=== PATIENT | male | born 1980 | race Caucasian/White ===

== ENCOUNTER 2016-07-30 17:18 | Emergency (ER) | payer OTHER ==
[~2016-07-30] VITALS: Ht 175.3 cm; Wt 83.9 kg
[~2016-07-30 17:18] MED LIST: AMOX875T2 PO; AUGM875T27 PO; BUPRENORPHINE SL; BUSP1TAB PO; CLON0.5T PO; NALOXONE SL; NO MEDS; PAXI10TA2 PO; SUBO4MIS SL; SUBO8MIS SL; TYLE325C PO; XANA0.5T PO; XANA1TAB2 PO
[2016-07-30] MEDS: NS 1,000 ML IV SCH ×2 (17:42→20:14)
--- NOTE | 2016-07-30 18:21 | REP ---
CT Head without contrast HISTORY: Altered mental status COMPARISON: 01/30/2012 There is no intraparenchymal hemorrhage, acute infarct, mass or midline shift. The ventricular system is normal in appearance. There is no extra cerebral collection. There is no fracture. The visualized sinuses are clear. IMPRESSION: There is no intracranial lesion. Signed by Praneeth Chandra MD 07/30/2016 06:12 P
[2016-07-30] MEDS ORDERED: GABA800T PO (18:22)
[2016-07-30 18:35] LABS: BASO % 0.4 % (0.0-1.0); EOS % 0.5 % (0.0-3.0); LARGE UNSTAINED CELL # 0.1 K/mm3 (0.0-0.4); LARGE UNSTAINED CELL % 1.1 % (0.0-4.0); LYMPH # 1.6 K/mm3 (1.5-4.5); LYMPH % 15.3 % (24.0-44.0); MEAN CORPUSCULAR HEMOGLOBIN 29.5 pg (27.0-33.0); MEAN CORPUSCULAR HGB CONC 33.5 g/dl (32.0-36.5); MEAN CORPUSCULAR VOLUME 88.1 fl (80.0-96.0); MONO # 0.5 K/mm3 (0.0-0.8); MONO % 4.9 % (0.0-5.0); NEUTROPHILS # 7.8 K/mm3 (1.8-7.7); NEUTROPHILS % 77.8 % (36.0-66.0); PLATELET COUNT, AUTOMATED 225 k/mm3 (150-450); RED CELL DISTRIBUTION WIDTH 13.1 % (11.5-14.5); WHITE BLOOD COUNT 10.1 K/mm3 (4.0-10.0)
[2016-07-30 18:39] LABS: ALBUMIN 3.9 GM/DL (3.2-5.2); ALBUMIN/GLOBULIN RATIO 1.15 (1.00-1.93); ALKALINE PHOSPHATASE 73 U/L (45-117); ALT/SGPT 123 U/L (12-78); ANION GAP 5 MEQ/L (8-16); AST/SGOT 55 U/L (15-37); BILIRUBIN,DIRECT < 0.1 MG/DL (0.0-0.2); BILIRUBIN,TOTAL 0.3 MG/DL (0.2-1.0); BLOOD UREA NITROGEN 8 MG/DL (7-18); CALCIUM LEVEL 8.5 MG/DL (8.5-10.1); CARBON DIOXIDE LEVEL 28 MEQ/L (21-32); CHLORIDE LEVEL 104 MEQ/L (98-107); CREATININE FOR GFR 0.93 MG/DL (0.70-1.30); GLOMERULAR FILTRATION RATE > 60.0 (>60); GLUCOSE, FASTING 91 MG/DL (70-105); POTASSIUM SERUM 4.1 MEQ/L (3.5-5.1); SODIUM LEVEL 137 MEQ/L (136-145); TOTAL PROTEIN 7.3 GM/DL (6.4-8.2)
[2016-07-30] MEDS ORDERED: [UNRECOGNIZED DRUG - OTHER] (18:41)
[2016-07-30 19:52] LABS: METHADONE URINE NEGATIVE (NEGATIVE)
[2016-07-30] MEDS ORDERED: carBAMazepine XR 200 MG TAB PO ONE (20:00)
[2016-07-30] MEDS ORDERED: CLON0.5T PO (20:06)
[2016-07-30] MEDS ORDERED: CARB20TAXR PO (20:06)
[2016-07-30] MEDS ORDERED: clonazePAM 1 MG TAB PO ONE (20:15)
[2016-07-30] MEDS ORDERED: clonazePAM 0.5 MG TAB PO ONE (20:15)
[2016-07-30 20:20] VITALS: BP 121/65
--- NOTE | 2016-07-31 18:27 | ECGEPIP ---
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
== END 2016-07-30 20:34 | disposition home or self-care (01) ==
LOC: EDBD 17:18 → M ED 18:20
DX: G40.909 Epilepsy, unspecified, not intractable, without status epilepticus (principal); F13.230 Sedative, hypnotic or anxiolytic dependence with withdrawal, uncomplicated; F17.200 Nicotine dependence, unspecified, uncomplicated

== ENCOUNTER 2016-08-05 10:03 | Inpatient (IN) | payer OTHER ==
[~2016-08-05] VITALS: Ht 172.7 cm; Wt 88.8 kg
[~2016-08-05 10:03] MED LIST changes: +CARB20TAXR PO; +GABA800T PO; +[UNRECOGNIZED DRUG - OTHER]
[2016-08-05] MEDS ORDERED: NS 500 ML IV ONE ×2 (10:30→18:15)
[2016-08-05 10:51] LABS: BASO % 0.4 % (0.0-1.0); EOS # 0.1 K/mm3 (0.0-0.50); LARGE UNSTAINED CELL # 0.1 K/mm3 (0.0-0.4); LARGE UNSTAINED CELL % 1.9 % (0.0-4.0); LYMPH # 2.5 K/mm3 (1.5-4.5); LYMPH % 40.9 % (24.0-44.0); MEAN CORPUSCULAR HEMOGLOBIN 29.7 pg (27.0-33.0); MEAN CORPUSCULAR HGB CONC 33.2 g/dl (32.0-36.5); MEAN CORPUSCULAR VOLUME 89.4 fl (80.0-96.0); MONO # 0.3 K/mm3 (0.0-0.8); MONO % 5.7 % (0.0-5.0); NEUTROPHILS # 2.8 K/mm3 (1.8-7.7); NEUTROPHILS % 49.2 % (36.0-66.0); PLATELET COUNT, AUTOMATED 219 k/mm3 (150-450); RED CELL DISTRIBUTION WIDTH 13.3 % (11.5-14.5); WHITE BLOOD COUNT 5.8 K/mm3 (4.0-10.0)
[2016-08-05 11:11] LABS: ALBUMIN 3.3 GM/DL (3.2-5.2); ALBUMIN/GLOBULIN RATIO 1.06 (1.00-1.93); ALKALINE PHOSPHATASE 83 U/L (45-117); ALT/SGPT 89 U/L (12-78); ANION GAP 7 MEQ/L (8-16); AST/SGOT 56 U/L (15-37); BILIRUBIN,DIRECT < 0.1 MG/DL (0.0-0.2); BILIRUBIN,TOTAL 0.2 MG/DL (0.2-1.0); BLOOD UREA NITROGEN 16 MG/DL (7-18); CALCIUM LEVEL 8.4 MG/DL (8.5-10.1); CARBON DIOXIDE LEVEL 28 MEQ/L (21-32); CHLORIDE LEVEL 108 MEQ/L (98-107); CREATININE FOR GFR 0.85 MG/DL (0.70-1.30); GLOMERULAR FILTRATION RATE > 60.0 (>60); GLUCOSE, FASTING 96 MG/DL (70-105); POTASSIUM SERUM 4.6 MEQ/L (3.5-5.1); SODIUM LEVEL 143 MEQ/L (136-145); TOTAL PROTEIN 6.4 GM/DL (6.4-8.2)
--- NOTE | 2016-08-05 11:17 | REP ---
Portable chest, single AP view, patient sitting: Comparison is 03/15/2015. The lung hickey are clear. The cardiac size is normal. The junie, mediastinum, and bony thorax are unremarkable. Impression: Negative portable chest. Signed by Dejon Alvarado MD 08/05/2016 11:09 A
[2016-08-05] MEDS ORDERED: carBAMazepine XR 200 MG TAB PO ONE (12:15)
--- NOTE | 2016-08-05 12:38 | REP ---
CT of the brain without IV contrast: Comparisons are 07/30/2016, and 01/30/2012. There is no hemorrhage, mass effect or midline shift. However, there is subtle decreased attenuation in the left temporal parietal zone without mass effect or shift. This is of uncertain significance. Subtle ischemic infarct is at least one diagnostic consideration. I would recommend MRI for confirmation. Ventricles are normal size and unchanged. The cortical stripe is otherwise unremarkable. Impression: Subtle zone of decreased attenuation in the left temporal parietal zone of uncertain significance, possibly a developing ischemic infarct. Recommend MRI for confirmation. Signed by Dejon Alvarado MD 08/05/2016 12:29 P
[2016-08-05] MEDS ORDERED: ONDANSETRON 4MG/2ML VIAL (J2405) As Ordered ONE (13:12)
[2016-08-05] MEDS ORDERED: ONDANSETRON 4MG/2ML VIAL (J2405) IV ONE (13:15)
[2016-08-05] MEDS ORDERED: LORazepam 2 MG/ML VIAL (J2060) IV STA (13:40)
[2016-08-05 13:50] LABS: INR 0.92
[2016-08-05] MEDS ORDERED: BUPR8SUB SL ×2 (13:57→15:46)
[2016-08-05] MEDS ORDERED: NS 1,000 ML IV ONE (14:15)
[2016-08-05 14:43] LABS: ANION GAP 5 MEQ/L (8-16); BLOOD UREA NITROGEN 14 MG/DL (7-18); CALCIUM LEVEL 8.6 MG/DL (8.5-10.1); CARBON DIOXIDE LEVEL 28 MEQ/L (21-32); CHLORIDE LEVEL 108 MEQ/L (98-107); GLOMERULAR FILTRATION RATE > 60.0 (>60); GLUCOSE, FASTING 83 MG/DL (70-105); POTASSIUM SERUM 4.3 MEQ/L (3.5-5.1); SODIUM LEVEL 141 MEQ/L (136-145)
[2016-08-05] MEDS ORDERED: NICO2GUM34 PO (15:46)
[2016-08-05] MEDS ORDERED: CLON0.5T PO (15:46)
[2016-08-05] MEDS ORDERED: CITA20TA4 PO (15:46)
[2016-08-05] MEDS ORDERED: CARB20TAXR PO (15:46)
[2016-08-05] MEDS ORDERED: HYDR50CA2 PO (15:46)
[2016-08-05] MEDS ORDERED: NICO21DI5 TD (15:46)
--- NOTE | 2016-08-05 15:52 | REP ---
MR angiography the brain without contrast: History: Abnormal CT. Recent seizure activity. Technique: 3-D bilp-wi-kykwit MR angiography of the brain is acquired in the usual fashion and maximal intensity projection images were generated in rotational format about the vertical and horizontal axes. In addition, source axial T1-weighted images are viewed in cine mode. MR angiographic findings: The distal left vertebral artery is patent . The right vertebral artery distally is not seen. It may be caudal to the field of view. Basilar artery is a little tortuous but widely patent. The posterior cerebral and superior cerebellar vessels are normal and symmetric. The distal internal carotid arteries are unremarkable. Anterior and middle cerebral arteries appear intact. There is no visible mullins aneurysm or arteriovenous malformation. Impression: Unremarkable MR angiography the brain. Signed by Edgar Yuan MD 08/05/2016 03:43 P
[2016-08-05] MEDS ORDERED: GABAPENTIN 400 MG CAP PO SCH (16:00)
[2016-08-05] MEDS ORDERED: ACETAMINOPHEN TAB 650MG DOSE (2X325MG) PO PRN (16:15)
--- NOTE | 2016-08-05 16:29 | REP ---
MRI study of the brain without contrast: History: Follow up abnormal CT study. Recent seizure activity. Technique: Axial and sagittal imaging planes are utilized for T1 and T2-weighted scans. Sequences include spin-echo, fast spin echo, FLAIR, and diffusion weighted sequences. MRI findings: No bony calvarial lesion is seen. There is mucosal thickening in the left side of the sphenoid sinus. No other MR evidence of significant paranasal sinus disease is seen. No intraorbital abnormality is appreciated. Craniocervical junction and upper cervical cord are normal in appearance. Diffusion weighted scans show no evidence to suggest acute ischemia. Coronal T2 FLAIR images show normal temporal lobes and hippocampal structures. There is no evidence of intracranial hemorrhage. No infarct, mass, extra-axial fluid collection or midline shift is seen. Impression: No acute intracranial lesion. Mucosal thickening in the left side of the sphenoid sinus. Otherwise normal. Signed by Edgar Yuan MD 08/05/2016 04:48 P
--- NOTE | 2016-08-05 16:47 | ECGEPIP ---
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
[2016-08-05 17:29] LABS: METHADONE URINE NEGATIVE (NEGATIVE)
[2016-08-05 17:30] VITALS: BP 95/64
--- NOTE | 2016-08-05 17:43 | REP ---
Bilateral carotid artery duplex ultrasound: Peak flow velocity analysis: RIGHT LEFT ICA. Peak flow velocity cm/sec 58 62 ICA Diastolic flow velocity cm/sec 29 28 ICA/CCA Ratio 0.64 0.76 There is no identifiable atheromatous plaque. Peak flow velocities are normal. Normal bilateral carotid duplex ultrasound. There is no stenosis on the right on the left. There is antegrade flow in the vertebral arteries bilaterally Signed by Dejon Alvarado MD 08/05/2016 05:34 P
[2016-08-05] MEDS ORDERED: BUPRENORPHINE/NALOXONE 8-2MG SUBLINGUAL TABLET(SUBOXONE) SL ONE (18:00)
[2016-08-05] MEDS: NS 1,000 ML IV SCH (19:31)
[2016-08-05 19:37] VITALS: BP 93/62
[2016-08-05] MEDS ORDERED: NICOTINE POLACRILEX 2 MG GUM PO PRN (19:45)
--- NOTE | 2016-08-05 20:29 | HPEPDOC ---
General Date of Admission Aug 05, 2016 at 15:11 Other Providers PCP: Tera Muñiz MD. Ayanna Magness in [place], [place] Chief Complaint The patient is a 36-year-old male admitted with a reason for visit of Seizure. Source: Patient History of Present Illness Mr. Nichole is here today because he once again had what appears to be sudden episode of loss of consciousness. He states that this occurred at approximately 8-9 AM this morning, he was having his mother's house, alone, he was going from the kitchen and living room when his vision became fussy, and he felt a warm sensation all over his body, and he felt a sensation that he needed a PE, and then suddenly "lights out" and he fell to the ground. This was unwitnessed. He did not have sufficient warning time even to sit down. He states that when he woke up he had drool all over his face, and his mind was foggy for approximately 20 minutes. He did not lose bowel or bladder control. He called the hospital and asked him what to do, they instructed him to come into the emergency department immediately. Then he called a friend who came over, assisted him to the car, he states that he had but one arm around his shoulder, but he was able to walk to the car. And then he was transported to the ED by his friend. He states that he had a similar episode in [facility] approximately 6 days ago for which she came into the emergency department. A seizure was suspected at that time, and he was given a prescription of 9 pills of Klonopin. His story regarding his use of medication is inconsistent. He states that he was given 9 days worth of clonazepam, which she was taking 1 pill 3 times a day , every day, including yesterday. When it was pointed out that he was not prescribed sufficient pills for this, he then stated that he was taking his pills only once a day, but yesterday he only had 1 pill left, therefore he broke it in half, and he still has half a pill left at home. This number does not correlate to his prescribed amount either. In addition to this he states that he takes Subutex 3 pills once a day every day, and he has never missed a dose, his last dose was yesterday, but he did not take his morning dose this morning because of his seizure/syncopal episode, therefore he feels as though he is starting to go into withdrawals. Ironically, his urine tox screen from 6 days ago, as well as his urine tox screen from today are both completely negative, specifically there are negative for benzodiazepines and opiates. Out of good face, I will have the lab rerun this, just to be sure. Either way, none of his above stories would correlate to a completely negative urine tox screen. After checking I stop, it appears that the last time he was prescribed clonazepam was on 06/18/2016 for 32 pills consisting of a 21 day supply, and then he was given 9 pills for 5 days supply on 07/30/2016 by our ED. He has been prescribed consistent Suboxone for at least the past year, and then he was switched over to Subutex in April 2016, he picked up his most recent prescription on 07/31/2016 for 7 days supply of 21 pills. This was prescribed by Tera Muñiz M.D. who works at [employer] in [facility] Home Medications Scheduled Buprenorphine HCl (Buprenorphine HCl) 8 Mg Sub 8 MG SL TID (Reported) Carbamazepine (TEGretol XR) 200 Mg Les 200 MG PO BID (Reported) Citalopram Hydrobromide (Citalopram Hydrobromide) 20 Mg Tab 20 MG PO DAILY ( Reported) Clonazepam (Clonazepam) 0.5 Mg Tab 0.5 MG PO ASDIRECTED (Reported) PATIENT STATES HE TAKES 2MG TABLETS BID. PHARMACY HAS NEVER FILLED THIS STRENGTH FOR HIM. 07/30/16 HE RECEIVED A 5 DAY RX OF 0.5MG 1BID FOR 2 DAYS, 1QD FOR 2 DAYS, THEN 1QD FOR [address] WOLFE. ON 06/18/16 HE RECEIVED 1MG 0.5TAB TID FROM [facility]. UNSURE OF STRENGTH PATIENT IS ACTUALLY TAKING Gabapentin (Gabapentin) 800 Mg Tab 800 MG PO TID (Reported) Nicotine (Nicoderm Cq) 21 Mg/24 Hr Dis 21 MG TD DAILY (Reported) Scheduled PRN Hydroxyzine Pamoate (Hydroxyzine Pamoate) 50 Mg Cap 50 MG PO QHS PRN PRN SLEEP ( Reported) Nicotine Polacrilex (Nicotine) 2 Mg Gum 2 MG PO Q4H PRN PRN NICOTINE WITHDRAWAL (Reported) Allergies Coded Allergies: No Known Allergies (Unverified , 4/21/13) Past Medical History Medical History None, other than a previous history of heroin addiction, he states that he has been clean for 2 years. Surgical History Dental procedures Family History Significant Family History: No pertinent family hx Social History * Smoker: current smoker (3-4 cigarettes a day) Alcohol: Denies Drugs: ravi Lives at home with his mother. 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 He has been attending rehabilitation groups 3 times a week for the past 2 years, he states that he is close to graduation. Review of Symptoms Constitutional: Denies: Chills, Fever, Night Sweats Eyes: Denies: Pain, Vision change ENT: Reports: Head Aches, Denies: Dysphagia, Ear Pain Skin: Denies: Breakdown, Lesions, Rash Pulmonary: Denies: Cough, Dyspnea Cardiovascular: Reports: Lt Headedness, Denies: Chest Pain, Orthopnea, Palpitations, Paroxysmal Noc. Dyspnea Gastrointestinal: Reports: Nausea, Denies: Abdominal Pain, Diarrhea, Vomiting Genitourinary: Denies: Dysuria, Frequency, Incontinence, Retention Hematologic: Denies: Bleeding Excessively, Bruising Neurological: Reports: Numbness (left-sided), Weakness (left-sided) Psych: Reports: Mood Normal, Denies: Depression, Memory Issues Physical Examination General Exam: Positive: Alert, Mild Distress Eye Exam: Positive: Conjunctiva & lids normal, EOMI, PERRLA, Negative: Sclera icteric ENT Exam: Positive: Atraumatic, Mucous membr. moist/pink, Pharynx Normal Neck Exam: Positive: Supple, Negative: JVD, thyromegaly Chest Exam: Positive: Clear to auscultation, Normal air movement Heart Exam: Positive: Normal S1, Normal S2, Rate Normal, Regular Rhythm, Negative: Murmurs, Rubs Abdomen Exam: Positive: Normal bowel sounds, Soft, Negative: Hepatospenomegaly, Tenderness Extremity Exam: Positive: Normal pulses, Negative: Clubbing, Cyanosis, Edema Skin Exam: Positive: Nl turgor and temperature, Negative: Breakdown, Lesion Neuro Exam: Positive: Cranial Nerves 3-12 NL, Normal Gait, Normal Speech, Normal Tone, Reflexes 2+, Strength at 5/5 X4 ext, Negative: Sensation Intact (he states that he has decreased sensation on the left side of his face, on his left arm, and his left leg) Psych Exam: Positive: Mental status NL, Mood NL, Oriented x 3 Vital Signs Vital Signs Date Time Temp Pulse Resp B/P Pulse Ox O2 Delivery O2 Flow Rate FiO2 08/05/16 17:21 97.1 61 16 104/63 97 08/05/16 10:04 Room Air Laboratory Data Labs 24H Laboratory Tests 2 08/05/16 10:41: Acetaminophen Level < 2.0L, Activated Partial Thromboplast Time 36.9, Aspartate Amino Transf (AST/SGOT) 56H, Alanine Aminotransferase (ALT/SGPT) 89H, Alkaline Phosphatase 83, Total Bilirubin 0.2, Direct Bilirubin < 0.1, Albumin 3.3, Albumin/Globulin Ratio 1.06, Ammonia 39H, Anion Gap 7L, White Blood Count 5.8, Red Blood Count 4.38, Hemoglobin 13.0L, Hematocrit 39.2L, Mean Corpuscular Volume 89.4, Mean Corpuscular Hemoglobin 29.7, Mean Corpuscular Hemoglobin Concent 33.2, Red Cell Distribution Width 13.3, Platelet Count 219, Neutrophils (%) (Auto) 49.2, Lymphocytes (%) (Auto) 40.9, Monocytes (%) (Auto) 5.7H, Eosinophils (%) (Auto) 2.0, Basophils (%) (Auto) 0.4, Neutrophils # (Auto) 2.8, Lymphocytes # (Auto) 2.5, Monocytes # (Auto) 0.3, Eosinophils # (Auto) 0.1, Basophils # (Auto) 0.0, Calcium Level 8.4L, Carbamazepine (Tegretol) Level 6.4, Ethyl Alcohol Level < 0.003, Glomerular Filtration Rate > 60.0, Large Unclassified Cells # 0.1, Large Unclassified Cells % 1.9, Prothromb Time International Ratio 0.92, Prothrombin Time 12.5, Salicylates Level < 1.7L, Total Protein 6.4 08/05/16 13:59: Anion Gap 5L, Calcium Level 8.6, Glomerular Filtration Rate > 60.0, Blood Urea Nitrogen 14, Creatinine 0.80, Sodium Level 141, Potassium Level 4.3, Chloride Level 108H, Carbon Dioxide Level 28, Total Creatine Kinase 106, Creatine Kinase MB 1.4, Creatine Kinase MB Relative Index 1.32, Troponin I < 0.02 08/05/16 16:02: Erythrocyte Sedimentation Rate 8 08/05/16 16:52: Urine Amphetamines Screen NEGATIVE, Urine Benzodiazepines Screen NEGATIVE, Urine Opiates Screen NEGATIVE, Urine Barbiturates Screen NEGATIVE, Urine Cannabinoids Screen NEGATIVE, Urine Cocaine Metabolite Screen NEGATIVE, Urine Methadone Screen NEGATIVE, Urine Phencyclidine Screen NEGATIVE CBC/BMP Laboratory Tests 08/05/16 10:41 Red Blood Count 4.38, Mean Corpuscular Volume 89.4, Mean Corpuscular Hemoglobin 29.7, Mean Corpuscular Hemoglobin Concent 33.2, Red Cell Distribution Width 13.3 , Neutrophils (%) (Auto) 49.2, Lymphocytes (%) (Auto) 40.9, Monocytes (%) (Auto ) 5.7 H, Eosinophils (%) (Auto) 2.0, Basophils (%) (Auto) 0.4, Neutrophils # ( Auto) 2.8, Lymphocytes # (Auto) 2.5, Monocytes # (Auto) 0.3, Eosinophils # (Auto ) 0.1, Basophils # (Auto) 0.0 08/05/16 13:59 Calcium Level 8.6, Total Creatine Kinase 106 Problems (1) Substance abuse Status: Acute Problem Text: Given his negative urine tox, there is a suspicion that he may be going through withdrawal, specifically he likely had a seizure from benzodiazepine withdrawal. we will give him a dose of Subutex and clonazepam for now, however, it may be prudent to just discontinue the medications, and treat him for withdrawal while he is here as he is already had 2 negative urine drug screens, which are completely inconsistent with his story. I also recommend notifying his Dr. Muñiz in the morning of his inconsistencies. (2) Benzodiazepine withdrawal Status: Acute (3) Stroke Status: Resolved Problem Text: Small area of hypodensity noted on CT, this was reviewed by Dr. Knott in [place] who did not believe that this was hemorrhage or acute infarction, and suspected that it may also be artifactual. Repeat MRI was negative. (4) Seizure Status: Acute Problem Text: Neurology has been consulted, will perform an inpatient EEG. (5) Syncope and collapse Status: Acute (6) Elevated LFTs Status: Acute Problem Text: He states that he has never been evaluated for hepatitis, he may have shared or used dirty needles in the past. We will order hepatitis panel at this time. Plan / VTE VTE Prophylaxis Ordered?: Yes (Lovenox) Plan Plan As it is unclear whether this was from seizure activity versus syncope, will admit the patient to PCU for monitoring for an arrhythmia, echocardiogram will also be performed for evaluation of structural abnormalities. He is quite young , therefore a hypercoagulability and vasculitis workup has been ordered, although lab was unable to draw them at this time as he is significantly dehydrated. He has already received a few liters in the ED, we will continue with fluid maintenance throughout the night. MILLIE MORALES DO Aug 05, 2016 18:15
[2016-08-05] MEDS: clonazePAM 0.5 MG TAB PO SCH (20:59)
[2016-08-05] MEDS: GABAPENTIN 400 MG CAP PO SCH (20:59)
[2016-08-05] MEDS: SENOKOT S TAB PO SCH (20:59)
[2016-08-05] MEDS ORDERED: ATORVASTATIN 20 MG TAB PO SCH (21:00)
[2016-08-05 22:07] LABS: ALBUMIN 3.1 GM/DL (3.2-5.2); ALBUMIN/GLOBULIN RATIO 1.15 (1.00-1.93); ALKALINE PHOSPHATASE 67 U/L (45-117); ALT/SGPT 82 U/L (12-78); ANION GAP 5 MEQ/L (8-16); AST/SGOT 46 U/L (15-37); BILIRUBIN,TOTAL 0.2 MG/DL (0.2-1.0); BLOOD UREA NITROGEN 11 MG/DL (7-18); CALCIUM LEVEL 7.8 MG/DL (8.5-10.1); CARBAMAZEPINE (TEGRETOL) LEVEL 6.5 UG/ML (4.0-10.0); CARBON DIOXIDE LEVEL 28 MEQ/L (21-32); CHLORIDE LEVEL 109 MEQ/L (98-107); CHOLESTEROL LEVEL 137 MG/DL (<200); GLOMERULAR FILTRATION RATE > 60.0 (>60); GLUCOSE, FASTING 109 MG/DL (70-105); POTASSIUM SERUM 4.2 MEQ/L (3.5-5.1); SODIUM LEVEL 142 MEQ/L (136-145); TOTAL PROTEIN 5.8 GM/DL (6.4-8.2); TRIGLYCERIDES LEVEL 152 MG/DL (<150)
[2016-08-05 22:18] LABS: PROLACTIN 60.6 NG/ML (2.1-17.7)
[2016-08-06 00:05] VITALS: BP 92/54
[2016-08-06 05:45] VITALS: BP 93/53
[2016-08-06 07:30] VITALS: BP 107/61
[2016-08-06] MEDS: NS 1,000 ML IV SCH (07:35)
[2016-08-06] MEDS: SENOKOT S TAB PO SCH (08:16)
[2016-08-06] MEDS: clonazePAM 0.5 MG TAB PO SCH (08:16)
[2016-08-06] MEDS: GABAPENTIN 400 MG CAP PO SCH (08:16)
[2016-08-06] MEDS ORDERED: METHADONE 10 MG TAB (S0109) PO ONE (09:00)
[2016-08-06] MEDS ORDERED: ENOXAPARIN 40 MG/0.4 ML SYRINGE (J1650) SC SCH (09:00)
[2016-08-06] MEDS ORDERED: ASPIRIN 81 MG CHEW TABLET PO SCH (09:00)
[2016-08-06] MEDS ORDERED: BUPRENORPHINE/NALOXONE 8-2MG SUBLINGUAL TABLET(SUBOXONE) SL SCH (09:00)
[2016-08-06] MEDS ORDERED: METHADONE 10 MG TAB (S0109) PO SCH ×2 (09:00→16:00)
[2016-08-06 12:00] VITALS: BP 100/58
[2016-08-06] MEDS ORDERED: BUPRENORPHINE/NALOXONE 8-2MG SUBLINGUAL TABLET(SUBOXONE) PO ONE (13:00)
--- NOTE | 2016-08-06 14:26 | CR ---
DATE OF CONSULTATION: 08/05/2016 REASON FOR CONSULTATION: Loss of consciousness. HISTORY OF PRESENT ILLNESS: Tanner Nichole is a 36-year-old male with past medical history significant for the past use of IV drug abuse, heroin, currently on buprenorphine treatment, presenting to [facility] with an episode of loss of consciousness. The patient states he stood up, felt dizzy, felt a warm tingly sensation. The patient became and then he lost consciousness. When he came to he states he felt drained and "out of it." Could not elaborate further on that. He did not have any tongue biting or incontinence. The patient was able to contact the hospital directly and tell them what had happened. The emergency department was able to advise him to come to the emergency room. Five days ago the patient had a similar episode while walking in [place] where he again became lightheaded, tingly sensation, warm sensation and then an episode of loss of consciousness. At that point, the patient was placed on carbamazepine despite not having a past history of seizures. The patient remains on carbamazepine with a therapeutic level during this admission. Interestingly enough, his urine toxicology from 5 days ago and during the day of admission was negative. He states he took his last dose of clonazepam 0.25 mg yesterday. He received 9 pills of 0.5 mg on 07/30/2016 through the emergency department. Prior to that it was 07/16/2016 that he received his last supply of medications. He is inconsistent in his description of when and how often he takes this medication. He insists that he does take it every day. Initially, he states he takes 1 mg of clonazepam three times a day and then later states that he only takes it as needed. So far the patient had a head CT with minor abnormalities, which were later verified to be inconsequential. MRI of the brain did not reveal any acute stroke. There were no focal lateralizing signs on examination or in the history of present illness description. The patient is awaiting EEG and cardiac workup. His liver function tests have been elevated and the patient was unaware of any abnormal liver disease. Laboratory workup has so far concluded that the patient does have elevated hepatitis C antibodies. The patient does have a history of IV drug abuse in the past and he does state that he may have shared needles as well. I have contacted our [facility] lab and they have requested that we check buprenorphine metabolite levels, specifically in the serum, as the urine toxicology will not show up if the levels are below 100. PAST MEDICAL HISTORY: IV drug abuse with heroin. Sharing of contaminated needles. PAST SURGICAL HISTORY: None. FAMILY HISTORY: Noncontributory. SOCIAL HISTORY: The patient states he has been two years free of use of any illicit drugs. He was last tested for hepatitis five years ago. He denies use of any alcohol or other illicit drugs. REVIEW OF SYSTEMS: 14-point review of systems obtained and is negative except as per HPI. PHYSICAL EXAMINATION: Blood pressure 110/55, pulse rate 64, respiratory rate 16, oxygenation is 96% on room air, temperature is 96.9 degrees Fahrenheit. Pupils are 3 mm round and reactive to light. The patient is alert, oriented to person, place and time. Speech language comprehension, repetition are intact. Sensation V1, V2-V3 is intact to light touch. No facial asymmetry on activation. Palate elevates symmetrically. Tongue is midline. Hearing subjectively equal to finger rub. No weakness of sternocleidomastoid bilaterally. No pronator drift. Strength is 5/5, including bilateral deltoids, biceps, triceps, handgrip, iliopsoas, quadriceps, anterior tibialis, extensor hallucis longus. Deep tendon reflexes are 2 throughout. Romberg testing is deferred. Sensory is intact to light touch in all four extremities. Coordination: Normal [id number]-[id number] without any signs of ataxia, dysmetria. ASSESSMENT: 1. Episode of loss of consciousness, possible seizure secondary to withdrawal from benzodiazepine, as none were detected in his blood work. 2. Possible syncope. PLAN: 1. Complete inpatient workup for syncope. 2. Obtain EEG. 3. After speaking with our [facility] lab, we have asked for a serum metabolite level of buprenorphine from the blood collected from the ER visit yesterday prior to the patient receiving any buprenorphine in the hospital to confirm his compliance with the drug. The patient does report inconsistency in his reporting of how often and when he last used clonazepam. Clonazepam withdrawal could certainly lead to seizures. 4. Elevated liver function tests and positive have C antibody suggests underlying infectious liver disease further workup as per primary team. 5. Continue carbamazepine at current dosages with therapeutic level.
--- NOTE | 2016-08-06 16:39 | IPN ---
DATE: 08/06/2016 Mr. Nichole has had no further seizure-like activity. Is concerned about the dosing of his methadone today. Asked that I obtain old information from [email or web address]. Temperature 97.9, pulse 76, respiratory rate 20, blood pressure 107/61, 95% on room air. Intake and output notable for a positive fluid balance of 2500. Weight is 88.8 kg. Is awake, appropriately interactive, pleasantly conversant. Troponins have been negative. There are no new labs for me to review. My assessment is as follows: This is a 36-year-old with suspected underlying seizure disorder who presented with seizure, the cause of which is cryptic. Plan is as follows: 1. Neurologic. Patient is followed with seizure precautions. EEG is pending today. He has been followed by neurology. Continuing current antiepileptic drug. Awaiting blood testing for Suboxone. In the meantime, patient has declined the use of the hospital's version of Suboxone and would prefer methadone. I have asked for old records from [email or web address], hopefully those will become available. 2. The patient has transaminitis and elevated hepatitic C titer. Will require outpatient followup. 3. There was concern about the possibility of stroke at the time of presentation which, at this point, appears to be as a result of an artifact on CT scan.
--- NOTE | 2016-08-07 06:10 | DSES ---
DATE OF ADMISSION: 08/05/2016 DATE OF DISCHARGE: 08/06/2016 SPECIALISTS INVOLVED IN CARE: Dr. Loza. COMPLICATIONS: No complications of his stay. PROCEDURES PERFORMED DURING STAY: Electroencephalogram (EEG). DISCHARGE DIAGNOSIS: Seizure disorder. SECONDARY DIAGNOSES: 1. Possible clonazepam withdrawal. 2. Opiate dependence. 3. Syncope and collapse. 4. Elevated liver function tests. 5. Suspected hepatitis C not treated. SUMMARY OF HOSPITALIZATION: This is a 36-year-old who presented with sudden loss of consciousness, thought to be a seizure. He had previously had an event at [facility] prior to this admission, was brought to the emergency department, started on an anti-epileptic drug as he has a history of seizure disorder. He was treated with tapering dose of Klonopin as apparently he had been out of Klonopin at home. He was admitted to the hospitalist service. CT was concerning for the possibility of stroke. MRI and MRA of the brain were unremarkable. Was seen by neurology, was continued on his Tegretol. Echocardiogram had not yet been completed at the time of his discharge. During the course of his stay, he became frustrated that we did not have his normal Subutex and that we attempted to obtain dosing information and guidance from [facility] which was also pending at the time he left the hospital. He had no further seizure or seizure-like activity during his stay, was tolerating a diet, was feeling well, and elected to leave against medical advice (AMA) on the day of discharge. Please see my progress note at that time for his condition. Discharge medications will remain the same as they were at the time of his admission. He left before receiving any discharge instructions, but was planning to go to [facility] on 08/07.
[2016-08-07] MEDS ORDERED: BUPRENORPHINE/NALOXONE 8-2MG SUBLINGUAL TABLET(SUBOXONE) SL SCH (09:00)
--- NOTE | 2016-08-08 06:56 | EEG ---
DATE OF PROCEDURE: 08/06/2016 REFERRING PHYSICIAN: Dr. Eric Hoang DIAGNOSIS: Syncope. EEG NUMBER: [id number]. HISTORY: The patient is a 36-year-old man with unwitnessed episode of loss of consciousness. He was at his mother's house and was going to the kitchen when he felt blurred vision and felt a warm sensation all over his body and lost consciousness. This EEG was done to rule out epileptic potential. He is currently on gabapentin, aspirin, Klonopin, methadone, Ativan, etc. TECHNICAL DESCRIPTION: This digital EEG was recorded by 21 scalp, ear and two EKG electrodes and was reviewed in bipolar and referential montages following reformatting in 10-20 international electrode placement system. INTERPRETATION: The patient was noted to be in awake and drowsy states during this EEG. Resting awake background rhythm consisted of well-formed posterior dominant rhythm with anterior/posterior gradient comprising of 10 Hz alpha activity measuring 15-40 microvolts in amplitude which was symmetric and reactive to eye opening. Attenuation of posterior dominant was seen during transition into drowsiness. Anteriorly low voltage mixed frequencies were noted. Stage I and II sleep were reviewed and were symmetric bilaterally. Hyperventilation elicited mild theta slowing of background rhythm. Photic stimulation at 3-30 Hz elicited symmetric photic driving, especially at mid frequencies. Electrocardiogram (EKG) revealed normal sinus rhythm. No focal, lateralizing or epileptiform abnormalities were seen. No clinical or electrographic seizures were recorded. CONCLUSION: This EEG in awake, drowsy states, stage I and II sleep is within normal limits.
[2016-08-08 14:37] LABS: PROTEIN C ANTIGEN 70 % (60-150); PROTEIN S ANTIGEN FREE 64 % (57-157); PROTEIN S ANTIGEN TOTAL 80 % (60-150)
[2016-08-09 00:06] LABS: SJOGREN'S ANTI SS-A <0.2 AI (0.0-0.9); SJOGREN'S ANTI SS-B <0.2 AI (0.0-0.9)
[2016-08-09 00:06] LABS: BUPRENORPHINE FREE SERUM 1 ng/mL (1-10); NORBUPRENORPHINE FREE SERUM 4 ng/mL (Not Estab.)
== END 2016-08-06 15:30 | disposition left against medical advice (07) | DRG 53 ==
LOC: M ED 12:16 → M ED INP 15:11 → M PCU 17:30
PROVIDERS: ADMIT Internal Medicine; ATTEND Internal Medicine
DX: G40.909 Epilepsy, unspecified, not intractable, without status epilepticus (principal); R55 Syncope and collapse; F19.230 Other psychoactive substance dependence with withdrawal, uncomplicated; B19.20 Unspecified viral hepatitis C without hepatic coma; F11.21 Opioid dependence, in remission; F17.210 Nicotine dependence, cigarettes, uncomplicated; R94.5 Abnormal results of liver function studies; Z79.899 Other long term (current) drug therapy

== ENCOUNTER 2016-08-10 22:36 | Inpatient (IN) | payer OTHER ==
[~2016-08-10] VITALS: Ht 172.7 cm; Wt 86.2 kg
[~2016-08-10 22:36] MED LIST changes: +BUPR8SUB SL; +CITA20TA4 PO; +HYDR50CA2 PO; +NICO21DI5 TD; +NICO2GUM34 PO
[2016-08-11] MEDS ORDERED: PIPERACILLIN/TAZOBACTAM SOD 3.375 GM in D5W MINI-BAG PLUS 50 ML IV ONE (01:00)
[2016-08-11 01:35] LABS: BASO % 0.2 % (0.0-1.0); EOS # 0.1 K/mm3 (0.0-0.50); EOS % 0.9 % (0.0-3.0); LARGE UNSTAINED CELL # 0.1 K/mm3 (0.0-0.4); LARGE UNSTAINED CELL % 1.2 % (0.0-4.0); LYMPH % 10.9 % (24.0-44.0); MEAN CORPUSCULAR HEMOGLOBIN 28.8 pg (27.0-33.0); MEAN CORPUSCULAR HGB CONC 32.5 g/dl (32.0-36.5); MEAN CORPUSCULAR VOLUME 88.5 fl (80.0-96.0); MONO # 0.5 K/mm3 (0.0-0.8); MONO % 5.5 % (0.0-5.0); NEUTROPHILS # 7.8 K/mm3 (1.8-7.7); NEUTROPHILS % 81.4 % (36.0-66.0); PLATELET COUNT, AUTOMATED 168 k/mm3 (150-450); WHITE BLOOD COUNT 9.5 K/mm3 (4.0-10.0)
[2016-08-11 01:48] LABS: ERYTHROCYTE SEDIMENTATION RATE 52 mm/hr (0-15)
[2016-08-11 01:58] LABS: ALBUMIN 3.4 GM/DL (3.2-5.2); ALBUMIN/GLOBULIN RATIO 0.94 (1.00-1.93); ALKALINE PHOSPHATASE 64 U/L (45-117); ALT/SGPT 78 U/L (12-78); ANION GAP 4 MEQ/L (8-16); AST/SGOT 35 U/L (15-37); BILIRUBIN,TOTAL 0.5 MG/DL (0.2-1.0); BLOOD UREA NITROGEN 13 MG/DL (7-18); CALCIUM LEVEL 8.5 MG/DL (8.5-10.1); CARBON DIOXIDE LEVEL 33 MEQ/L (21-32); CHLORIDE LEVEL 102 MEQ/L (98-107); CREATININE FOR GFR 0.94 MG/DL (0.70-1.30); GLOMERULAR FILTRATION RATE > 60.0 (>60); GLUCOSE, FASTING 108 MG/DL (70-105); POTASSIUM SERUM 4.2 MEQ/L (3.5-5.1); SODIUM LEVEL 139 MEQ/L (136-145)
[2016-08-11] MEDS ORDERED: ONDANSETRON 4MG/2ML VIAL (J2405) IV PRN (02:45)
[2016-08-11] MEDS ORDERED: GI COCKTAIL 50ML BTL(HYOSCYAMINE/MAALOX/LIDOCAINE VISCOUS)(1:3:1) PO ONE (02:45)
[2016-08-11] MEDS ORDERED: NS 1,000 ML IV SCH (02:45)
[2016-08-11] MEDS ORDERED: NICO2GUM8 PO (03:16)
[2016-08-11 03:40] VITALS: BP 118/66
--- NOTE | 2016-08-11 03:40 | REPUSA ---
CLINICAL HISTORY: Edema. COMMENTS: Real time sonography with duplex doppler of the left lower extremity was performed with attention to the major deep venous structures. Evaluation reveals the left common femoral, superficial femoral and popliteal veins to be completely compressible without intraluminal thrombus. There is normal spontaneous phasic flow and augmentation. The greater saphenous/common femoral vein junction is patent. Mildly enlarged left inguinal lymph no abril. IMPRESSION: No evidence of DVT in left lower extremity. Mildly enlarged left inguinal lymph nodes. Thank you for your kind referral of this patient.
[2016-08-11] MEDS ORDERED: NICOTINE POLACRILEX 2 MG GUM PO PRN (03:45)
[2016-08-11] MEDS: CEFTAROLINE FOSAMIL 600 MG in D5W MINI-BAG PLUS 50 ML IV SCH ×2 (04:24→16:11)
--- NOTE | 2016-08-11 05:24 | HPE ---
DATE OF ADMISSION: 08/11/2016 PRIMARY CARE PROVIDER: Tera Muñiz at [facility]. CHIEF COMPLAINT: Left lower extremity redness, swelling and pain. HISTORY OF PRESENT ILLNESS: This is a 36-year-old male patient with underlying medical history of intravenous (IV) drug use and opiate dependence, suspected hepatitis C, recently admitted for syncope and seizure possibly secondary to Klonopin withdrawal. The patient was discharged on 08/07/2016. As per patient, he developed left lower extremity redness, spreading initially from the foot progressively up to the left medial thigh area with erythema and pain. The patient stated that he has not used IV drugs as per patient for one year, has been at the [employer] [employer]. Denies any injury other than a small scratch on the dorsum of the foot. Denies any trauma. Reported chills but no thought given to fevers. Denies chest pain, pressure, discomfort. Denies any cough. Denies any shortness of breath. Denies any abdominal pain. Otherwise feels okay. ALLERGIES: No known drug allergies. PAST MEDICAL HISTORY: 1. IV drug use. 2. Possible seizure disorder versus Klonopin withdrawal seizure. PAST SURGICAL HISTORY: Dental procedure. FAMILY HISTORY: Noncontributory. SOCIAL HISTORY: Current smoker. Smokes 3-4 cigarettes a day. 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 Has been attending rehabilitation groups. Denies alcoholic beverages. REVIEW OF SYSTEMS: 10-point review of systems negative except for those mentioned in the history of present illness (HPI). HOME MEDICATIONS: - buprenorphine 8 mg sublingual twice a day - Tegretol 200 mg by mouth twice a day - citalopram 20 mg by mouth daily - clonazepam 0.5 mg by mouth three times a day - gabapentin 300 mg by mouth three times a day - Nicorette gum 2 mg by mouth as directed as needed PHYSICAL EXAMINATION: VITAL SIGNS: Temperature maximum (T-max) 100.2, temperature current 99, pulse maximum of 102, currently at 73, respirations 18, blood pressure 113/85, pulse oximetry 98% on room air. GENERAL: Patient alert and oriented times three, in no acute distress. HEENT: Normocephalic, atraumatic. PULMONARY: Bilaterally clear to auscultation. CARDIAC: Regular rate and rhythm. Normal S1, S2. ABDOMEN: Soft, nontender, nondistended. EXTREMITIES: Left lower extremity erythema spreading from the foot to ankles to calf, all the way to the medial of the patient's thigh. Tender to palpation, now swollen. Dorsalis pedis (DP) and posterior tibialis (PT) pulses intact bilaterally. LABORATORY DATA: WBC 9.5, hemoglobin and hematocrit 11.9 over 36.6, platelets 168. Chemistry: Sodium 139, potassium 4.2, chloride 102, bicarbonate 33, BUN 13, creatinine 0.94. Lactic acid 0.8. A1c 17.7. ASSESSMENT AND PLAN: This is a 36-year-old male patient with underlying medical history of IV drug abuse in the past, recently admitted for syncope and questionable seizure possibly due to withdrawal seizure. The patient signed out against medical advice on 08/07/2016. Subsequently presented with three days of progressive worsening lower extremity pain, currently admitted for cellulitis. 1. Left lower extremity cellulitis. Ultrasound Doppler negative for deep venous thrombosis (DVT). Followup cultures. Followup methicillin-resistant Staphylococcus aureus (MRSA) screening. Teflaro. IV fluids overnight. Continue to monitor. Followup x-rays. 2. Seizure disorder. Continue Tegretol, clonazepam. 3. Depression/anxiety. Continue Celexa, clonazepam. 4. Chronic pain. Continue current medication. 5. Smoking. Counseling provided. Nicotine gum. 6. Deep venous thrombosis (DVT) prophylaxis. Heparin subcutaneous. DISPOSITION PLANNING: Pending cultures, clinical improvement.
[2016-08-11] MEDS: HEPARIN SOD (PORCINE) 5000 UNITS/ML VIAL SC SCH ×3 (05:43→20:48)
[2016-08-11 06:00] VITALS: BP 102/59
[2016-08-11] MEDS: CitaloPRAM (CeleXA) 20 MG TAB PO SCH (08:42)
[2016-08-11] MEDS: carBAMazepine XR 200 MG TAB PO SCH ×2 (08:42→20:47)
[2016-08-11] MEDS: SENOKOT S TAB PO SCH ×2 (08:42→20:48)
[2016-08-11] MEDS: GABAPENTIN 400 MG CAP PO SCH ×3 (08:42→20:47)
[2016-08-11] MEDS: clonazePAM 0.5 MG TAB PO SCH ×3 (08:42→20:47)
[2016-08-11] MEDS: METHADONE 10 MG TAB (S0109) PO SCH ×3 (08:43→20:48)
[2016-08-11 14:00] VITALS: BP 111/59
[2016-08-11] MEDS: ACETAMINOPHEN TAB 650MG DOSE (2X325MG) PO PRN ×3 (14:08→22:34)
[2016-08-11 21:00] VITALS: BP 123/67
[2016-08-12] MEDS: CEFTAROLINE FOSAMIL 600 MG in D5W MINI-BAG PLUS 50 ML IV SCH ×2 (05:47→16:51)
[2016-08-12] MEDS: HEPARIN SOD (PORCINE) 5000 UNITS/ML VIAL SC SCH ×3 (05:48→20:54)
[2016-08-12] MEDS: ACETAMINOPHEN TAB 650MG DOSE (2X325MG) PO PRN (05:51)
[2016-08-12 06:00] VITALS: BP 104/64
[2016-08-12] MEDS ORDERED: IBUPROFEN 400 MG TAB PO ONE (07:00)
[2016-08-12 07:05] LABS: MEAN CORPUSCULAR HEMOGLOBIN 28.8 pg (27.0-33.0); MEAN CORPUSCULAR HGB CONC 32.8 g/dl (32.0-36.5); MEAN CORPUSCULAR VOLUME 87.9 fl (80.0-96.0); RED CELL DISTRIBUTION WIDTH 12.9 % (11.5-14.5)
[2016-08-12 07:19] LABS: ANION GAP 8 MEQ/L (8-16); BLOOD UREA NITROGEN 8 MG/DL (7-18); CALCIUM LEVEL 7.7 MG/DL (8.5-10.1); CARBON DIOXIDE LEVEL 26 MEQ/L (21-32); CHLORIDE LEVEL 102 MEQ/L (98-107); CREATININE FOR GFR 1.01 MG/DL (0.70-1.30); GLOMERULAR FILTRATION RATE > 60.0 (>60); GLUCOSE, FASTING 145 MG/DL (70-105); MAGNESIUM LEVEL 1.4 MG/DL (1.8-2.4); POTASSIUM SERUM 3.5 MEQ/L (3.5-5.1); SODIUM LEVEL 136 MEQ/L (136-145)
--- NOTE | 2016-08-12 08:03 | REP ---
Clinical: Swelling . Technique: AP, lateral, bilateral oblique views left foot. Findings: The osseous structures and joint spaces are intact and normal. There is no evidence for acute fracture or dislocation. Surrounding soft tissues are unremarkable. No subcutaneous emphysema or radiodense foreign body. Impression: No acute fracture or dislocation. Signed by Casey Armando MD 08/12/2016 07:55 A
--- NOTE | 2016-08-12 08:05 | REP ---
Clinical: Swelling. Technique: AP and lateral views of the left tibia / fibula. Findings: No acute fracture dislocation. Lateral view best demonstrates chronic unfused osseous fragments at the tibial tuberosity which are unchanged compared to 06/17/2014 and may represent sequelae of prior [place] disease. Impression: No acute fracture dislocation. Signed by Casey Armando MD 08/12/2016 07:57 A
[2016-08-12] MEDS ORDERED: IBUPROFEN 800 MG TAB PO PRN (09:00)
[2016-08-12] MEDS: carBAMazepine XR 200 MG TAB PO SCH ×2 (09:08→20:54)
[2016-08-12] MEDS: GABAPENTIN 400 MG CAP PO SCH ×3 (09:08→20:53)
[2016-08-12] MEDS: clonazePAM 0.5 MG TAB PO SCH ×3 (09:09→20:53)
[2016-08-12] MEDS: CitaloPRAM (CeleXA) 20 MG TAB PO SCH (09:09)
[2016-08-12] MEDS: METHADONE 10 MG TAB (S0109) PO SCH ×3 (09:09→20:53)
[2016-08-12] MEDS: SENOKOT S TAB PO SCH ×2 (09:09→20:53)
[2016-08-12] MEDS: MAG SULF 1GM/100ML (MAG RUN) 1 GM in APPROPRIATE DILUENT 1 EA IV SCH ×2 (09:10→10:00)
--- NOTE | 2016-08-12 10:32 | IPNPDOC ---
Subjective Date Seen The patient was seen on 08/12/16. Subjective Chief Complaint/HPI The patient is a 36-year-old male admitted with a reason for visit of Cellulitis. Events since last encounter had spike of fever last night and this am . new blood cultures have been sent. complains of pain and swelling and redness of the left foot and leg. Also complains of generalized flushing. Objective Physical Examination General Exam: Positive: Alert, No Acute Distress Eye Exam: Positive: Conjunctiva & lids normal, EOMI, PERRLA, Negative: Sclera icteric ENT Exam: Positive: Atraumatic, Mucous membr. moist/pink, Pharynx Normal Neck Exam: Positive: Supple, Negative: JVD, thyromegaly Chest Exam: Positive: Clear to auscultation, Normal air movement Heart Exam: Positive: Normal S1, Normal S2, Rate Normal, Regular Rhythm, Negative: Murmurs, Rubs Abdomen Exam: Positive: Normal bowel sounds, Soft, Negative: Hepatospenomegaly, Tenderness Extremity Exam: Positive: Edema, Swelling, Tenderness, Negative: Clubbing, Cyanosis, Normal pulses, Other Skin Exam: Positive: Lesion Assessment /Plan Problems (1) History of opioid abuse Status: Chronic Problem Text: was a IV drug user now on subaxone. (2) Cellulitis Status: Acute Problem Text: continue ceftaroline (3) Seizure Status: Chronic Problem Text: possibly benzodiazepine withdrawal seizure vs seizure disorder continue current meds. (4) Hepatitis C antibody positive in blood Status: Chronic Plan/VTE VTE Prophylaxis Ordered?: Yes VS, I&O, [facility] Vital Signs/I&O Vital Signs Date Time Temp Pulse Resp B/P Pulse Ox O2 Delivery O2 Flow Rate FiO2 08/12/16 09:09 18 08/12/16 08:24 99.0 08/12/16 06:00 98 104/64 94 Room Air I&O- Last 24 Hours up to 6 AM 08/12/16 06:00 Intake Total 2220 ml Output Total 1075 ml Balance 1145 ml Laboratory Data 24H LABS Laboratory Tests 2 08/12/16 06:48: Anion Gap 8, C-Reactive Protein, Quantitative 17.00H, Blood Urea Nitrogen 8, Creatinine 1.01, Sodium Level 136, Potassium Level 3.5, Chloride Level 102, Carbon Dioxide Level 26, Calcium Level 7.7L, Glomerular Filtration Rate > 60.0, Magnesium Level 1.4L CBC/BMP Laboratory Tests 08/12/16 06:48 Calcium Level 7.7 L, Red Blood Count 3.73 L, Mean Corpuscular Volume 87.9, Mean Corpuscular Hemoglobin 28.8, Mean Corpuscular Hemoglobin Concent 32.8, Red Cell Distribution Width 12.9 Microbiology Microbiology 08/12/16 Blood Culture, Received Pending 08/12/16 Blood Culture, Received Pending 08/11/16 Blood Culture - Preliminary, Resulted No growth after 24 hours . All specim... 08/11/16 Blood Culture - Preliminary, Resulted No growth after 24 hours . All specim... 08/11/16 MRSA Screen, Received Pending PATRICIA CERVANTES MD Aug 12, 2016 10:32
[2016-08-12 14:00] VITALS: BP 102/70
[2016-08-12] MEDS: ACETAMINOPHEN 500 MG TAB PO PRN (20:54)
[2016-08-12 22:00] VITALS: BP 99/56
[2016-08-13] MEDS: CEFTAROLINE FOSAMIL 600 MG in D5W MINI-BAG PLUS 50 ML IV SCH (05:31)
[2016-08-13] MEDS: HEPARIN SOD (PORCINE) 5000 UNITS/ML VIAL SC SCH ×2 (05:31→14:00)
[2016-08-13] MEDS: ACETAMINOPHEN 500 MG TAB PO PRN (05:34)
[2016-08-13 06:00] VITALS: BP 101/62
[2016-08-13 08:25] LABS: MEAN CORPUSCULAR HEMOGLOBIN 29.9 pg (27.0-33.0); MEAN CORPUSCULAR HGB CONC 33.7 g/dl (32.0-36.5); MEAN CORPUSCULAR VOLUME 88.8 fl (80.0-96.0); RED CELL DISTRIBUTION WIDTH 13.1 % (11.5-14.5); WHITE BLOOD COUNT 11.1 K/mm3 (4.0-10.0)
[2016-08-13 08:30] LABS: ANION GAP 6 MEQ/L (8-16); BLOOD UREA NITROGEN 8 MG/DL (7-18); CALCIUM LEVEL 7.7 MG/DL (8.5-10.1); CARBON DIOXIDE LEVEL 32 MEQ/L (21-32); CHLORIDE LEVEL 101 MEQ/L (98-107); CREATININE FOR GFR 0.84 MG/DL (0.70-1.30); GLOMERULAR FILTRATION RATE > 60.0 (>60); GLUCOSE, FASTING 142 MG/DL (70-105); MAGNESIUM LEVEL 2.1 MG/DL (1.8-2.4); POTASSIUM SERUM 3.3 MEQ/L (3.5-5.1); SODIUM LEVEL 139 MEQ/L (136-145)
[2016-08-13] MEDS ORDERED: INFLUENZA QUADRIVALENT PF VACCINE 0.5ML SYRINGE/VIAL (90686) IM ONE (09:00)
[2016-08-13] MEDS: CitaloPRAM (CeleXA) 20 MG TAB PO SCH (09:21)
[2016-08-13] MEDS: METHADONE 10 MG TAB (S0109) PO SCH (09:21)
[2016-08-13] MEDS: carBAMazepine XR 200 MG TAB PO SCH (09:21)
[2016-08-13] MEDS: SENOKOT S TAB PO SCH (09:21)
[2016-08-13] MEDS: clonazePAM 0.5 MG TAB PO SCH (09:21)
[2016-08-13] MEDS: GABAPENTIN 400 MG CAP PO SCH (09:21)
[2016-08-13] MEDS ORDERED: POTASSIUM CHLORIDE 10 MEQ SR TABLET PO ONE (09:30)
[2016-08-13] MEDS ORDERED: DALV1SOL IV (10:39)
[2016-08-13] MEDS ORDERED: IBUP80TA PO (10:39)
[2016-08-13 14:00] VITALS: BP 99/61
--- NOTE | 2016-08-14 09:25 | DSES ---
DATE OF ADMISSION: 08/11/2016 DATE OF DISCHARGE: 08/13/2016 PRIMARY CARE PROVIDER: Tera Muñiz at [facility]. DISCHARGE DIAGNOSES: 1. Cellulitis of the left lower extremity. 2. Seizure disorder versus history of benzodiazepine withdrawal seizure. 3. History of opioid abuse in intravenous (IV), currently on Suboxone. 4. Hepatitis C, antibody positive. DISCHARGE MEDICATIONS: - Dalvance 1500 mg IV one-time dose - ibuprofen 800 mg by mouth every 8 hours as needed - suboxone 8 mg sublingual three times a day - carbamazepine 200 mg by mouth twice a day - citalopram 20 mg by mouth daily - clonazepam 0.5 mg by mouth three times a day - gabapentin 800 mg by mouth three times a day - Nicorette gum 2 mg by mouth as directed as needed smoking cessation HOSPITAL COURSE: This is a 36-year-old male who was recently admitted to the hospital for seizure and was thought to be secondary to benzodiazepine withdrawal and was discharged from the hospital on 08/07/2016. Following discharge, he developed redness on the foot spreading upwards. He initially developed a small scratch on the dorsum of the foot which became swollen, so he wanted to drain it, so used a sharp object to open it up. However, then the redness and the pain and swelling spread upwards and was presented to the hospital for that. The patient was diagnosed with left lower extremity cellulitis and was started on ceftaroline. The patient already got a tetanus shot within the past 6 months, so tetanus was not repeated. The patient responded well to ceftaroline, and there was significant improvement in his redness and swelling and pain during hospitalization. The patient was then subsequently discharged home with one dose of Dalvance to be administered by visiting nurse service at his home. On the day of discharge, he was able to ambulate, his vital signs were stable, and he was almost at his baseline functional status. PHYSICAL EXAMINATION: Vital signs: Temperature 98.3, pulse 80, respiratory rate 16, blood pressure 99/61, pulse oximetry 99% in room air. General: The patient awake, alert, oriented times three. Sitting up in bed. In no acute distress. HEENT: Normocephalic, atraumatic. Moist mucous membranes. Anicteric eyes. Chest clear to auscultation. Cardiovascular: S1, S2, regular. No rub, murmur, or gallop. Abdomen soft, nontender. Bowel sounds present. Extremities: No edema. LABORATORY DATA: WBC 11.1, hemoglobin 10.5, platelet 201. Sodium 139, potassium 3.3, chloride 101, bicarbonate 32, BUN 8, creatinine 0.8, glucose 142, calcium 7.7, magnesium 2.1, CRP 19. Blood cultures: No growth after 72 hours. Vascular ultrasound: Was negative for deep venous thrombosis (DVT) in the left lower extremity. There was mildly enlarged left inguinal lymph nodes. X-ray of the foot and tibia and fibula did not show any acute fracture or dislocation. DISPOSITION: The patient is discharged home in a stable condition. DISCHARGE INSTRUCTIONS: The patient to followup with primary care provider in 1 week. Regular diet. Activity as tolerated.
== END 2016-08-13 14:57 | disposition home or self-care (01) | DRG 383 ==
LOC: M ED 23:34 → M ED INP 08-11 02:43 → M MSPAV 08-11 03:40
PROVIDERS: ADMIT Hospitalist; ATTEND Internal Medicine Nephrology
DX: L03.116 Cellulitis of left lower limb (principal); F32.9 Major depressive disorder, single episode, unspecified; G40.909 Epilepsy, unspecified, not intractable, without status epilepticus; F41.9 Anxiety disorder, unspecified; G89.29 Other chronic pain; F11.10 Opioid abuse, uncomplicated; B18.2 Chronic viral hepatitis C; F17.210 Nicotine dependence, cigarettes, uncomplicated; Z79.899 Other long term (current) drug therapy

== ENCOUNTER → 2016-09-26 | Outpatient (REF) | payer OTHER ==
[~2016-09-26] MED LIST changes: +DALV1SOL IV; +IBUP80TA PO; +NICO2GUM8 PO
== END ==
LOC: M LAB REF 12:23
PROVIDERS: ATTEND Family Medicine Addiction Medicine
DX: F11.188 Opioid abuse with other opioid-induced disorder (principal)

== ENCOUNTER → 2016-10-29 | Outpatient (REF) | payer OTHER ==
[~2016-10-29] MED LIST changes: -AUGM875T27 PO; +AUGM875T28 PO; +PAXI10TA12 PO; -PAXI10TA2 PO
[2016-11-02 08:07] LABS: BENZODIAZEPINES, URINE SCREEN Negative ng/mL (Cutoff=200); METHADONE, URINE SCREEN Negative ng/mL (Cutoff=300); pH, URINE 5.9 (4.5-8.9)
== END ==
LOC: M LAB REF 16:41
PROVIDERS: ATTEND Family Medicine Addiction Medicine
DX: F11.188 Opioid abuse with other opioid-induced disorder (principal)

== ENCOUNTER → 2017-01-27 | Outpatient (REF) | payer OTHER ==
[2017-02-07 14:43] LABS: BENZODIAZEPINES, URINE SCREEN Negative ng/mL (Cutoff=200); METHADONE, URINE SCREEN Negative ng/mL (Cutoff=300); NALOXONE RESULT Positive (.); URINE NORBUPRENORPHINE Positive (.); URINE NORBUPRENORPHINE CONFIRM 1226 ng/mL (Cutoff=10); pH, URINE 7.2 (4.5-8.9)
== END ==
LOC: M LAB REF 01-07 12:27
PROVIDERS: ATTEND Family Medicine Addiction Medicine
DX: F11.188 Opioid abuse with other opioid-induced disorder (principal)

== ENCOUNTER → 2017-04-14 | Outpatient (REF) | payer OTHER, MEDICAID ==
[~2017-04-14] MED LIST changes: +CLEO300C2 PO; +KETO10TAB PO; +PENI500T; +PREG100CA; +SUBO8MIS
[2017-04-21 08:06] LABS: BENZODIAZEPINES, URINE SCREEN Negative ng/mL (Cutoff=200); METHADONE, URINE SCREEN Negative ng/mL (Cutoff=300); URINE NORBUPRENORPHINE Positive (.); URINE NORBUPRENORPHINE CONFIRM 24 ng/mL (Cutoff=10); pH, URINE 5.4 (4.5-8.9)
== END ==
LOC: M LAB REF 13:43
PROVIDERS: ATTEND Family Medicine Addiction Medicine
DX: F11.188 Opioid abuse with other opioid-induced disorder (principal)

== ENCOUNTER → 2017-04-16 | Outpatient (REF) | payer OTHER, MEDICAID ==
[2017-04-16 13:14] LABS: BASO % 0.4 % (0.0-1.0); EOS # 0.1 10^3/uL (0.0-0.50); EOS % 1.6 % (0.0-3.0); IMMATURE GRANULOCYTE % 0.3 % (0-0); LYMPH # 1.8 10^3/uL (1.5-4.5); LYMPH % 24.8 % (24.0-44.0); MEAN CORPUSCULAR HGB CONC 33.7 g/dl (32.0-36.5); MEAN CORPUSCULAR VOLUME 89.1 fl (80.0-96.0); MONO # 0.6 10^3/uL (0.0-0.8); MONO % 7.9 % (0.0-5.0); NEUTROPHILS # 4.6 10^3/uL (1.8-7.7); PLATELET COUNT, AUTOMATED 218 10^3/uL (150-450); WHITE BLOOD COUNT 7.1 10^3/uL (4.0-10.0)
[2017-04-16 13:48] LABS: ALBUMIN 3.5 GM/DL (3.2-5.2); ALBUMIN/GLOBULIN RATIO 1.06 (1.00-1.93); ALKALINE PHOSPHATASE 71 U/L (45-117); ALT/SGPT 135 U/L (12-78); ANION GAP 5 MEQ/L (8-16); AST/SGOT 82 U/L (7-37); BILIRUBIN,TOTAL 0.4 MG/DL (0.2-1.0); BLOOD UREA NITROGEN 10 MG/DL (7-18); CALCIUM LEVEL 8.3 MG/DL (8.5-10.1); CARBON DIOXIDE LEVEL 29 MEQ/L (21-32); CHLORIDE LEVEL 107 MEQ/L (98-107); CHOLESTEROL LEVEL 133 MG/DL (<200); CREATININE FOR GFR 0.72 MG/DL (0.70-1.30); GLOMERULAR FILTRATION RATE > 60.0 (>60); GLUCOSE, FASTING 88 MG/DL (70-105); POTASSIUM SERUM 4.2 MEQ/L (3.5-5.1); SODIUM LEVEL 141 MEQ/L (136-145); TOTAL PROTEIN 6.8 GM/DL (6.4-8.2); TRIGLYCERIDES LEVEL 63 MG/DL (<150)
== END ==
LOC: M LAB REF 12:29
PROVIDERS: ATTEND Family Medicine Addiction Medicine
DX: R53.83 Other fatigue (principal); F41.8 Other specified anxiety disorders

== ENCOUNTER 2017-04-17 11:13 | Emergency (ER) | payer OTHER, MEDICAID ==
[2017-04-17 12:10] LABS: BASO % 0.4 % (0.0-1.0); EOS # 0.1 10^3/uL (0.0-0.50); EOS % 1.8 % (0.0-3.0); IMMATURE GRANULOCYTE % 0.1 % (0-0); LYMPH # 1.8 10^3/uL (1.5-4.5); LYMPH % 24.8 % (24.0-44.0); MEAN CORPUSCULAR HEMOGLOBIN 29.9 pg (27.0-33.0); MEAN CORPUSCULAR VOLUME 87.8 fl (80.0-96.0); MONO # 0.7 10^3/uL (0.0-0.8); MONO % 9.7 % (0.0-5.0); NEUTROPHILS # 4.6 10^3/uL (1.8-7.7); NEUTROPHILS % 63.2 % (36.0-66.0); PLATELET COUNT, AUTOMATED 193 10^3/uL (150-450); RED CELL DISTRIBUTION WIDTH 13.2 % (11.5-14.5); WHITE BLOOD COUNT 7.3 10^3/uL (4.0-10.0)
[2017-04-17] MEDS: CLINDAMYCIN 900 MG in APPROPRIATE DILUENT 1 EA IV (12:13)
[2017-04-17] MEDS: KETOROLAC 30 MG/ML VIAL (J1885) IV (12:14)
[2017-04-17] MEDS: NS 500 ML IV (12:30)
[2017-04-17 12:39] LABS: ERYTHROCYTE SEDIMENTATION RATE 8 mm/hr (0-15)
[2017-04-17 12:43] LABS: ANION GAP 4 MEQ/L (8-16); BLOOD UREA NITROGEN 13 MG/DL (7-18); CALCIUM LEVEL 8.3 MG/DL (8.5-10.1); CARBON DIOXIDE LEVEL 30 MEQ/L (21-32); CHLORIDE LEVEL 107 MEQ/L (98-107); CREATININE FOR GFR 0.73 MG/DL (0.70-1.30); GLOMERULAR FILTRATION RATE > 60.0 (>60); GLUCOSE, FASTING 103 MG/DL (70-105); POTASSIUM SERUM 3.8 MEQ/L (3.5-5.1); SODIUM LEVEL 141 MEQ/L (136-145)
[2017-04-17] MEDS ORDERED: ISOVUE-370 76% 100ML VIAL (Q9967) As Ordered (12:56)
[2017-04-17] MEDS ORDERED: clonazePAM 1 MG TAB PO (13:45)
[2017-04-17] MEDS: clonazePAM 0.5 MG TAB PO (13:51)
[2017-04-17] MEDS: PREGABALIN 100 MG CAP (LYRICA) PO (13:51)
== END 2017-04-17 14:44 | disposition home or self-care (01) ==
LOC: M ED 11:13
DX: L03.211 Cellulitis of face (principal); F41.9 Anxiety disorder, unspecified; F33.9 Major depressive disorder, recurrent, unspecified; F19.10 Other psychoactive substance abuse, uncomplicated; Z79.891 Long term (current) use of opiate analgesic
CPT/HCPCS: Q9967

== ENCOUNTER → 2017-04-28 | Outpatient (REF) | payer OTHER | LOC: M LAB REF 16:47 | DX: F11.188 Opioid abuse with other opioid-induced disorder (principal) ==

== ENCOUNTER → 2017-05-13 | Outpatient (REF) | payer OTHER | LOC: M LAB REF 19:40 | DX: F11.188 Opioid abuse with other opioid-induced disorder (principal) ==

== ENCOUNTER 2017-08-12 17:44 | Inpatient (IN) | payer OTHER ==
[2017-08-12 19:47] LABS: HEMATOCRIT 41.7 % (42.0-52.0); HEMOGLOBIN 13.9 g/dl (13.5-17.5); MEAN CORPUSCULAR HGB CONC 33.3 g/dl (32.0-36.5); MEAN CORPUSCULAR VOLUME 89.9 fl (80.0-96.0); PLATELET COUNT, AUTOMATED 203 10^3/uL (150-450); RED BLOOD COUNT 4.64 10^6/uL (4.30-6.10); RED CELL DISTRIBUTION WIDTH 13.4 % (11.5-14.5); WHITE BLOOD COUNT 7.8 10^3/uL (4.0-10.0)
[2017-08-12 20:09] LABS: ACETAMINOPHEN LEVEL < 2.0 UG/ML (10.0-30.0); ALBUMIN 3.9 GM/DL (3.2-5.2); ALBUMIN/GLOBULIN RATIO 1.34 (1.00-1.93); ALKALINE PHOSPHATASE 77 U/L (45-117); ALT/SGPT 57 U/L (12-78); ANION GAP 5 MEQ/L (8-16); AST/SGOT 38 U/L (7-37); BILIRUBIN,DIRECT 0.1 MG/DL (0.0-0.2); BILIRUBIN,TOTAL 0.5 MG/DL (0.2-1.0); BLOOD UREA NITROGEN 10 MG/DL (7-18); CALCIUM LEVEL 8.7 MG/DL (8.5-10.1); CARBON DIOXIDE LEVEL 30 MEQ/L (21-32); CHLORIDE LEVEL 110 MEQ/L (98-107); CREATININE FOR GFR 0.89 MG/DL (0.70-1.30); ETHYL ALCOHOL (ETHANOL) < 0.003 % (0.000-0.010); GLOMERULAR FILTRATION RATE > 60.0 (>60); GLUCOSE, FASTING 77 MG/DL (70-100); POTASSIUM SERUM 4.9 MEQ/L (3.5-5.1); SALICYLATE LEVEL 2.5 MG/DL (5.0-30.0); SODIUM LEVEL 145 MEQ/L (136-145); THYROID STIMULATING HORMONE 0.723 uIU/ML (0.358-3.740); TOTAL PROTEIN 6.8 GM/DL (6.4-8.2)
[2017-08-12 20:34] LABS: AMPHETAMINES LEVEL URINE NEGATIVE (NEGATIVE); BARBITURATES URINE NEGATIVE (NEGATIVE); BENZODIAZEPINES URINE POSITIVE (NEGATIVE); CANNABINOIDS URINE NEGATIVE (NEGATIVE); COCAINE METABOLITE URINE NEGATIVE (NEGATIVE); METHADONE URINE NEGATIVE (NEGATIVE); OPIATES URINE NEGATIVE (NEGATIVE); PHENCYCLIDINE URINE NEGATIVE (NEGATIVE)
[2017-08-12] MEDS ORDERED: MOM 30ML SUSPENSION UDC PO (21:00)
[2017-08-12] MEDS ORDERED: MAALOX 30 ML SUSP *UDC PO (21:00)
[2017-08-12] MEDS: BUPRENORPHINE/NALOXONE 8-2MG SUBLINGUAL TABLET(SUBOXONE) SL (23:04)
[2017-08-12] MEDS: clonazePAM 1 MG TAB PO (23:04)
[2017-08-13] MEDS: BUPRENORPHINE/NALOXONE 8-2MG SUBLINGUAL TABLET(SUBOXONE) SL ×2 (08:45→16:43)
[2017-08-13] MEDS: clonazePAM 1 MG TAB PO ×2 (08:47→21:22)
[2017-08-13] MEDS: GABAPENTIN 400 MG CAP PO ×3 (09:51→21:22)
[2017-08-13] MEDS: NICOTINE 21MG/24HR 1 EA TRANSDERMAL TD (11:19)
[2017-08-13] MEDS: ESCITALOPRAM OXALATE 10 MG TAB (LEXAPRO) PO (12:05)
[2017-08-14] MEDS: NICOTINE 21MG/24HR 1 EA TRANSDERMAL TD (08:35)
[2017-08-14] MEDS: ESCITALOPRAM OXALATE 10 MG TAB (LEXAPRO) PO (08:35)
[2017-08-14] MEDS: clonazePAM 1 MG TAB PO ×2 (08:36→21:12)
[2017-08-14] MEDS: BUPRENORPHINE/NALOXONE 8-2MG SUBLINGUAL TABLET(SUBOXONE) SL ×2 (08:36→15:20)
[2017-08-14] MEDS: GABAPENTIN 400 MG CAP PO ×3 (08:36→21:12)
[2017-08-14 08:47] LABS: ALBUMIN 3.5 GM/DL (3.2-5.2); ALBUMIN/GLOBULIN RATIO 1.13 (1.00-1.93); ALKALINE PHOSPHATASE 86 U/L (45-117); ALT/SGPT 67 U/L (12-78); ANION GAP 5 MEQ/L (8-16); AST/SGOT 50 U/L (7-37); BILIRUBIN,TOTAL 0.2 MG/DL (0.2-1.0); BLOOD UREA NITROGEN 13 MG/DL (7-18); CALCIUM LEVEL 8.6 MG/DL (8.5-10.1); CARBON DIOXIDE LEVEL 26 MEQ/L (21-32); CHLORIDE LEVEL 111 MEQ/L (98-107); CREATININE FOR GFR 0.81 MG/DL (0.70-1.30); GLOMERULAR FILTRATION RATE > 60.0 (>60); GLUCOSE, FASTING 112 MG/DL (70-100); POTASSIUM SERUM 4.4 MEQ/L (3.5-5.1); SODIUM LEVEL 142 MEQ/L (136-145); TOTAL PROTEIN 6.6 GM/DL (6.4-8.2)
[2017-08-14 13:01] LABS: HEPATITIS B SURFACE ANTIGEN NEGATIVE (NEGATIVE)
[2017-08-14] MEDS: OLANZapine 5 MG TAB PO (13:09)
[2017-08-14 13:11] LABS: HEPATITIS B CORE ANTIBODY IGM NEGATIVE (NEGATIVE)
[2017-08-14 13:16] LABS: HEPATITIS B SURFACE ANTIBODY POSITIVE (POSITIVE)
[2017-08-14 13:45] LABS: HEPATITIS C VIRUS ABY INDEX > 11.0 INDEX (<0.8)
[2017-08-14] MEDS: traZODone 50 MG TAB PO (21:12)
[2017-08-15] MEDS: NICOTINE 21MG/24HR 1 EA TRANSDERMAL TD (09:04)
[2017-08-15] MEDS: clonazePAM 1 MG TAB PO ×2 (09:05→17:41)
[2017-08-15] MEDS: GABAPENTIN 400 MG CAP PO ×3 (09:05→20:20)
[2017-08-15] MEDS: ESCITALOPRAM OXALATE 10 MG TAB (LEXAPRO) PO (09:05)
[2017-08-15] MEDS: BUPRENORPHINE/NALOXONE 8-2MG SUBLINGUAL TABLET(SUBOXONE) SL ×2 (09:05→16:50)
[2017-08-15] MEDS ORDERED: hydrOXYzine 50 MG TAB PO (09:45)
[2017-08-15] MEDS: OLANZapine 5 MG TAB PO (20:20)
[2017-08-15] MEDS: traZODone 50 MG TAB PO (20:20)
[2017-08-15] MEDS: ACETAMINOPHEN TAB 650MG DOSE (2X325MG) PO (20:21)
[2017-08-16] MEDS: GABAPENTIN 400 MG CAP PO ×3 (08:16→21:54)
[2017-08-16] MEDS: ESCITALOPRAM OXALATE 10 MG TAB (LEXAPRO) PO (08:16)
[2017-08-16] MEDS: clonazePAM 1 MG TAB PO ×2 (08:16→15:37)
[2017-08-16] MEDS: NICOTINE 21MG/24HR 1 EA TRANSDERMAL TD (08:16)
[2017-08-16] MEDS: BUPRENORPHINE/NALOXONE 8-2MG SUBLINGUAL TABLET(SUBOXONE) SL ×2 (09:17→15:37)
[2017-08-16] MEDS: ACETAMINOPHEN TAB 650MG DOSE (2X325MG) PO (18:31)
[2017-08-16] MEDS: CLINDAMYCIN 150 MG CAP PO (19:22)
[2017-08-16] MEDS: traZODone 50 MG TAB PO (21:54)
[2017-08-16] MEDS: IBUPROFEN 600 MG TAB PO (21:56)
[2017-08-16] MEDS: OLANZapine 5 MG TAB PO (21:57)
[2017-08-16] MEDS: LACTOBACILLUS ACIDOPHILUS CAP (BACID) PO (22:15)
[2017-08-17] MEDS: CLINDAMYCIN 150 MG CAP PO ×2 (06:43→13:07)
[2017-08-17] MEDS: NICOTINE 21MG/24HR 1 EA TRANSDERMAL TD (09:12)
[2017-08-17] MEDS: clonazePAM 1 MG TAB PO (09:13)
[2017-08-17] MEDS: LACTOBACILLUS ACIDOPHILUS CAP (BACID) PO (09:13)
[2017-08-17] MEDS: BUPRENORPHINE/NALOXONE 8-2MG SUBLINGUAL TABLET(SUBOXONE) SL ×2 (09:13→12:18)
[2017-08-17] MEDS: ESCITALOPRAM OXALATE 10 MG TAB (LEXAPRO) PO (09:13)
[2017-08-17] MEDS: GABAPENTIN 400 MG CAP PO (09:13)
[2017-08-18 00:08] LABS: HCV RNA NAA QUALITATIVE Positive (Negative)
[2017-08-18 08:06] LABS: ALPHA 2-MACROGLOBULIN 171 mg/dL (110-276); ALT 55 IU/L (0-55); APOLIPOPROTEIN A-1 130 mg/dL (101-178); FIBROSIS SCORE 0.04 (0.00-0.21); GGT 10 IU/L (0-65); HAPTOGLOBIN 76 mg/dL (34-200); HEPATITIS B CORE ANTIBODY IGG Positive (Negative); NECROINFLAM SCORE 0.24 (0.00-0.17); NECROINFLAMM GRADE A0-A1 (.); TOTAL BILIRUBIN 0.1 mg/dL (0.0-1.2)
[2017-08-18 14:14] LABS: HEPATITIS C QUANTITATION 1641680 IU/mL (.); HEPATITIS C VIRUS GENOTYPE 3 (.)
== END 2017-08-17 13:25 | disposition home or self-care (01) | DRG 754 ==
LOC: M PSY 08-15 10:50 → M ED 17:44 → M ED INP 20:51 → M PSY 21:59
DX: F32.9 Major depressive disorder, single episode, unspecified (principal); F41.9 Anxiety disorder, unspecified; F17.210 Nicotine dependence, cigarettes, uncomplicated; B18.2 Chronic viral hepatitis C; Z81.1 Family history of alcohol abuse and dependence; Z81.3 Family history of other psychoactive substance abuse and dependence; Z79.899 Other long term (current) drug therapy; Z63.5 Disruption of family by separation and divorce; Z59.0 Homelessness

== ENCOUNTER 2018-01-22 03:58 | Inpatient (IN) | payer OTHER ==
[2018-01-22 05:43] LABS: HEMATOCRIT 42.8 % (42.0-52.0); HEMOGLOBIN 14.2 g/dl (13.5-17.5); MEAN CORPUSCULAR HEMOGLOBIN 29.8 pg (27.0-33.0); MEAN CORPUSCULAR HGB CONC 33.2 g/dl (32.0-36.5); MEAN CORPUSCULAR VOLUME 89.9 fl (80.0-96.0); PLATELET COUNT, AUTOMATED 241 10^3/uL (150-450); RED BLOOD COUNT 4.76 10^6/uL (4.30-6.10); RED CELL DISTRIBUTION WIDTH 13.6 % (11.5-14.5); WHITE BLOOD COUNT 8.8 10^3/uL (4.0-10.0)
[2018-01-22 06:06] LABS: AMPHETAMINES LEVEL URINE NEGATIVE (NEGATIVE); BARBITURATES URINE NEGATIVE (NEGATIVE); BENZODIAZEPINES URINE POSITIVE (NEGATIVE); CANNABINOIDS URINE NEGATIVE (NEGATIVE); COCAINE METABOLITE URINE NEGATIVE (NEGATIVE); METHADONE URINE NEGATIVE (NEGATIVE); OPIATES URINE NEGATIVE (NEGATIVE); PHENCYCLIDINE URINE NEGATIVE (NEGATIVE)
[2018-01-22 06:16] LABS: ACETAMINOPHEN LEVEL < 2.0 UG/ML (10.0-30.0); ALBUMIN/GLOBULIN RATIO 1.18 (1.00-1.93); ALKALINE PHOSPHATASE 83 U/L (45-117); ALT/SGPT 172 U/L (12-78); ANION GAP 11 MEQ/L (8-16); AST/SGOT 76 U/L (7-37); BILIRUBIN,DIRECT 0.2 MG/DL (0.0-0.2); BILIRUBIN,TOTAL 0.5 MG/DL (0.2-1.0); BLOOD UREA NITROGEN 13 MG/DL (7-18); CALCIUM LEVEL 9.1 MG/DL (8.5-10.1); CARBON DIOXIDE LEVEL 27 MEQ/L (21-32); CHLORIDE LEVEL 104 MEQ/L (98-107); CREATININE FOR GFR 0.78 MG/DL (0.70-1.30); ETHYL ALCOHOL (ETHANOL) 0.057 % (0.000-0.010); GLOMERULAR FILTRATION RATE > 60.0 (>60); GLUCOSE, FASTING 99 MG/DL (70-100); POTASSIUM SERUM 4.1 MEQ/L (3.5-5.1); SALICYLATE LEVEL 2.5 MG/DL (5.0-30.0); SODIUM LEVEL 142 MEQ/L (136-145); TOTAL PROTEIN 7.4 GM/DL (6.4-8.2)
[2018-01-22] MEDS ORDERED: MOM 30ML SUSPENSION UDC PO (06:30)
[2018-01-22] MEDS ORDERED: MAALOX 30 ML SUSP *UDC PO (06:30)
[2018-01-22] MEDS ORDERED: ACETAMINOPHEN TAB 650MG DOSE (2X325MG) PO (06:30)
[2018-01-22] MEDS: NICOTINE 21MG/24HR 1 EA TRANSDERMAL TD (10:09)
[2018-01-22] MEDS: ESCITALOPRAM OXALATE 10 MG TAB (LEXAPRO) PO (11:21)
[2018-01-22] MEDS: clonazePAM 1 MG TAB PO ×2 (11:21→21:34)
[2018-01-22] MEDS: BUPRENORPHINE/NALOXONE 8-2MG SUBLINGUAL TABLET(SUBOXONE) SL ×2 (11:22→21:34)
[2018-01-22] MEDS: GABAPENTIN 400 MG CAP PO ×2 (11:23→21:34)
[2018-01-23] MEDS: traZODone 50 MG TAB PO (00:06)
[2018-01-23 07:16] LABS: ALBUMIN 3.8 GM/DL (3.2-5.2); ALBUMIN/GLOBULIN RATIO 1.31 (1.00-1.93); ALKALINE PHOSPHATASE 82 U/L (45-117); ALT/SGPT 140 U/L (12-78); ANION GAP 8 MEQ/L (8-16); AST/SGOT 53 U/L (7-37); BILIRUBIN,TOTAL 0.5 MG/DL (0.2-1.0); BLOOD UREA NITROGEN 15 MG/DL (7-18); CALCIUM LEVEL 9.2 MG/DL (8.5-10.1); CARBON DIOXIDE LEVEL 27 MEQ/L (21-32); CHLORIDE LEVEL 106 MEQ/L (98-107); CREATININE FOR GFR 0.82 MG/DL (0.70-1.30); GLOMERULAR FILTRATION RATE > 60.0 (>60); GLUCOSE, FASTING 109 MG/DL (70-100); POTASSIUM SERUM 4.1 MEQ/L (3.5-5.1); SODIUM LEVEL 141 MEQ/L (136-145); TOTAL PROTEIN 6.7 GM/DL (6.4-8.2)
[2018-01-23] MEDS: clonazePAM 1 MG TAB PO ×2 (08:56→20:15)
[2018-01-23] MEDS: BUPRENORPHINE/NALOXONE 8-2MG SUBLINGUAL TABLET(SUBOXONE) SL ×2 (08:56→20:15)
[2018-01-23] MEDS: GABAPENTIN 400 MG CAP PO ×2 (08:56→20:15)
[2018-01-23] MEDS: NICOTINE 21MG/24HR 1 EA TRANSDERMAL TD (08:56)
[2018-01-23] MEDS: FLUoxetine 20 MG CAP PO (08:56)
[2018-01-24] MEDS: traZODone 50 MG TAB PO (00:12)
[2018-01-24] MEDS: FLUoxetine 20 MG CAP PO (08:31)
[2018-01-24] MEDS: NICOTINE 21MG/24HR 1 EA TRANSDERMAL TD (08:31)
[2018-01-24] MEDS: clonazePAM 1 MG TAB PO ×2 (08:31→20:19)
[2018-01-24] MEDS: BUPRENORPHINE/NALOXONE 8-2MG SUBLINGUAL TABLET(SUBOXONE) SL ×2 (08:31→15:19)
[2018-01-24] MEDS: GABAPENTIN 400 MG CAP PO ×2 (08:31→20:19)
[2018-01-24] MEDS: INFLUENZA QUADRIVALENT PF VACCINE 0.5ML SYRINGE (90686) IM (08:33)
[2018-01-24 16:42] LABS: HEMATOCRIT 38.3 % (42.0-52.0); MEAN CORPUSCULAR HEMOGLOBIN 30.2 pg (27.0-33.0); MEAN CORPUSCULAR HGB CONC 33.9 g/dl (32.0-36.5); MEAN CORPUSCULAR VOLUME 88.9 fl (80.0-96.0); PLATELET COUNT, AUTOMATED 216 10^3/uL (150-450); RED BLOOD COUNT 4.31 10^6/uL (4.30-6.10); RED CELL DISTRIBUTION WIDTH 13.6 % (11.5-14.5)
[2018-01-24 17:00] LABS: URIC ACID 5.9 MG/DL (3.5-7.2)
[2018-01-24 17:00] LABS: C REACTIVE PROTEIN QUANTITATIV < 0.30 MG/DL (0.00-0.30); ERYTHROCYTE SEDIMENTATION RATE 7 mm/hr (0-15)
[2018-01-24] MEDS: CEPHALEXIN 500 MG CAP PO (20:19)
[2018-01-24] MEDS: IBUPROFEN 600 MG TAB PO (20:20)
[2018-01-25] MEDS: clonazePAM 1 MG TAB PO (08:51)
[2018-01-25] MEDS: GABAPENTIN 400 MG CAP PO (08:51)
[2018-01-25] MEDS: CEPHALEXIN 500 MG CAP PO (08:51)
[2018-01-25] MEDS: FLUoxetine 20 MG CAP PO (08:51)
[2018-01-25] MEDS: NICOTINE 21MG/24HR 1 EA TRANSDERMAL TD (08:52)
[2018-01-25] MEDS: BUPRENORPHINE/NALOXONE 8-2MG SUBLINGUAL TABLET(SUBOXONE) SL ×2 (09:51→13:28)
[2018-01-25 11:25] LABS: HEPATITIS A ANTIBODY IGM NEGATIVE (NEGATIVE); HEPATITIS B CORE ANTIBODY IGM NEGATIVE (NEGATIVE)
[2018-01-25 11:34] LABS: HEPATITIS C VIRUS ABY INDEX > 11.0 INDEX (<0.8)
[2018-01-25 12:06] LABS: HEPATITIS B SURFACE ANTIGEN NEGATIVE (NEGATIVE)
== END 2018-01-25 13:30 | disposition home or self-care (01) | DRG 754 ==
LOC: M PSY 01-23 16:32 → M ED 03:58 → M ED INP 06:28 → M PSY 08:25
DX: F32.9 Major depressive disorder, single episode, unspecified (principal); L03.114 Cellulitis of left upper limb; B18.2 Chronic viral hepatitis C; F17.210 Nicotine dependence, cigarettes, uncomplicated; G47.00 Insomnia, unspecified; F41.9 Anxiety disorder, unspecified; M79.89 Other specified soft tissue disorders; Z79.899 Other long term (current) drug therapy; Z81.1 Family history of alcohol abuse and dependence; Z91.5 Personal history of self-harm; Z59.8 Other problems related to housing and economic circumstances

== ENCOUNTER 2018-05-08 04:28 | Emergency (ER) | payer OTHER ==
[~2018-05-08] VITALS: Ht 172.7 cm; Wt 100.0 kg
[~2018-05-08 04:28] MED LIST changes: +CEPH500C PO; +CITA20TA4; -CLON0.5T PO; +CLON0.5T8 PO; +CLON1TAB8 PO; +ESCI10TA2 PO; +ESCI20TA PO; +FLUO20CA19 PO; +GABA-845 PO; -GABA800T PO; +GABA800T4 PO; +IBUP-1022 PO; +LORA1TAB12 PO; -NICO21DI5 TD; +NICO21DI6 TD; +NICO21PAT TD; +TRAZO50TA PO
[2018-05-08] MEDS ORDERED: LIDOCAINE W/EPINEPHRINE 1% 20ML VIAL SC ONE ×2 (05:30→08:30)
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
[2018-05-08] MEDS ORDERED: TETANUS/DIPHTHERIA TOX ADSORB ADULT 0.5ML SYR/VIAL (90714) IM ONE (06:00)
[2018-05-08] MEDS ORDERED: PIPERACILLIN/TAZOBACTAM SOD 3.375 GM in D5W MINI-BAG PLUS 50 ML IV ONE (06:00)
[2018-05-08] MEDS ORDERED: metroNIDAZOLE (FLAGYL) 500 MG TAB PO ONE (07:00)
[2018-05-08] MEDS ORDERED: cefTRIAXone SOD 2 GM VIAL (J0696) IM ONE (07:00)
[2018-05-08] MEDS ORDERED: LIDOCAINE 1% SDV 5 ML VIAL DILUENT ONE (07:00)
[2018-05-08] MEDS ORDERED: AUGM875T28 PO (07:52)
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
[2018-05-08 12:15] VITALS: BP 104/60
== END 2018-05-08 12:58 | disposition home or self-care (01) ==
LOC: M ED 04:28
DX: S01.81XA Laceration without foreign body of other part of head, initial encounter (principal); S41.111A Laceration without foreign body of right upper arm, initial encounter; S41.139A Puncture wound without foreign body of unspecified upper arm, initial encounter; Y04.8XXA Assault by other bodily force, initial encounter; W54.0XXA Bitten by dog, initial encounter; Y92.098 Other place in other non-institutional residence as the place of occurrence of the external cause; F19.10 Other psychoactive substance abuse, uncomplicated; F11.11 Opioid abuse, in remission; B19.20 Unspecified viral hepatitis C without hepatic coma; R56.9 Unspecified convulsions; R94.5 Abnormal results of liver function studies; F32.9 Major depressive disorder, single episode, unspecified; Z79.899 Other long term (current) drug therapy; Z79.2 Long term (current) use of antibiotics
CPT/HCPCS: 12001; 12002; 36415; 70450; 72125; 73060; 90471; 90714; 96372; 99284; G0480; J0696

== ENCOUNTER 2018-08-17 16:44 | Emergency (ER) | payer OTHER ==
[~2018-08-17] VITALS: Ht 172.7 cm; Wt 95.5 kg
[~2018-08-17 16:44] MED LIST changes: -CITA20TA4; -CITA20TA4 PO; +CITA20TA6; +CITA20TA6 PO; -NICO2GUM34 PO; +NICO2GUM50 PO
[2018-08-17] MEDS ORDERED: BUPR8SUB (16:52)
[2018-08-17] MEDS ORDERED: GABA800T4 (16:52)
[2018-08-17] MEDS ORDERED: NARC1SPR (16:52)
[2018-08-17] MEDS ORDERED: CLINDAMYCIN 150 MG CAP PO ONE (17:30)
[2018-08-17] MEDS ORDERED: CLEO300C2 PO (17:38)
[2018-08-17] MEDS ORDERED: IBUP-1022 PO (17:38)
[2018-08-17 18:57] VITALS: BP 118/72
== END 2018-08-17 18:39 | disposition home or self-care (01) ==
LOC: M ED 16:44
DX: L03.114 Cellulitis of left upper limb (principal); R56.9 Unspecified convulsions; F19.20 Other psychoactive substance dependence, uncomplicated; F17.210 Nicotine dependence, cigarettes, uncomplicated

== ENCOUNTER 2018-10-09 20:54 | Emergency (ER) | payer OTHER ==
[~2018-10-09] VITALS: Ht 172.7 cm; Wt 95.5 kg
[~2018-10-09 20:54] MED LIST changes: +BUPR8SUB; +GABA800T4; +NARC1SPR; +TRAZ1TAB10 PO; -TRAZO50TA PO
[2018-10-09] MEDS ORDERED: ACETAMINOPHEN TAB 650MG DOSE (2X325MG) PO ONE (22:00)
[2018-10-09 22:19] LABS: AMPHETAMINES LEVEL URINE NEGATIVE (NEGATIVE); BARBITURATES URINE NEGATIVE (NEGATIVE); BENZODIAZEPINES URINE POSITIVE (NEGATIVE); CANNABINOIDS URINE NEGATIVE (NEGATIVE); COCAINE METABOLITE URINE POSITIVE (NEGATIVE); METHADONE URINE NEGATIVE (NEGATIVE); OPIATES URINE NEGATIVE (NEGATIVE); PHENCYCLIDINE URINE NEGATIVE (NEGATIVE)
[2018-10-09 22:49] LABS: HEMATOCRIT 38.6 % (42.0-52.0); HEMOGLOBIN 12.8 g/dl (13.5-17.5); MEAN CORPUSCULAR HGB CONC 33.2 g/dl (32.0-36.5); MEAN CORPUSCULAR VOLUME 90.6 fl (80.0-96.0); PLATELET COUNT, AUTOMATED 167 10^3/uL (150-450); RED BLOOD COUNT 4.26 10^6/uL (4.30-6.10); WHITE BLOOD COUNT 9.4 10^3/uL (4.0-10.0)
[2018-10-09 23:48] LABS: ACETAMINOPHEN LEVEL < 2.0 UG/ML (10.0-30.0); ALBUMIN 3.4 GM/DL (3.2-5.2); ALT/SGPT 70 U/L (12-78); BILIRUBIN,DIRECT 0.1 MG/DL (0.0-0.2); BILIRUBIN,TOTAL 0.6 MG/DL (0.2-1.0); BLOOD UREA NITROGEN 10 MG/DL (7-18); CALCIUM LEVEL 8.3 MG/DL (8.5-10.1); CARBON DIOXIDE LEVEL 29 MEQ/L (21-32); CHLORIDE LEVEL 107 MEQ/L (98-107); CREATININE FOR GFR 0.77 MG/DL (0.70-1.30); ETHYL ALCOHOL (ETHANOL) < 0.003 % (0.000-0.010); GLOMERULAR FILTRATION RATE > 60.0 (>60); GLUCOSE, FASTING 75 MG/DL (70-100); POTASSIUM SERUM 4.4 MEQ/L (3.5-5.1); SALICYLATE LEVEL < 1.7 MG/DL (5.0-30.0); SODIUM LEVEL 141 MEQ/L (136-145); TOTAL PROTEIN 6.7 GM/DL (6.4-8.2)
[2018-10-10 08:35] VITALS: BP 125/69
--- NOTE | 2018-10-10 18:52 | ECGEPIP ---
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
== END 2018-10-10 08:40 ==
LOC: M ED 20:54
DX: R45.851 Suicidal ideations (principal); F33.9 Major depressive disorder, recurrent, unspecified; Z88.8 Allergy status to other drugs, medicaments and biological substances; F12.20 Cannabis dependence, uncomplicated; F19.20 Other psychoactive substance dependence, uncomplicated; F17.210 Nicotine dependence, cigarettes, uncomplicated
CPT/HCPCS: 36415; 80048; 80076; 80307; 84443; 85027; 93005; 99285; G0480

== ENCOUNTER 2018-11-10 20:35 | Emergency (ER) | payer MEDICAID, OTHER ==
[~2018-11-10] VITALS: Ht 172.7 cm; Wt 97.3 kg
[2018-11-10] MEDS ORDERED: BACTRIM 160MG/800MG DS TAB PO ONE (22:00)
[2018-11-10 22:02] LABS: BASO % 0.4 % (0.0-1.0); EOS # 0.2 10^3/uL (0.0-0.50); EOS % 2.8 % (0.0-3.0); HEMATOCRIT 38.9 % (42.0-52.0); HEMOGLOBIN 12.9 g/dl (13.5-17.5); LYMPH # 1.6 10^3/uL (1.5-4.5); LYMPH % 22.9 % (24.0-44.0); MEAN CORPUSCULAR HEMOGLOBIN 29.6 pg (27.0-33.0); MEAN CORPUSCULAR HGB CONC 33.2 g/dl (32.0-36.5); MEAN CORPUSCULAR VOLUME 89.2 fl (80.0-96.0); MONO # 0.7 10^3/uL (0.0-0.8); MONO % 10.2 % (0.0-5.0); NEUTROPHILS # 4.4 10^3/uL (1.8-7.7); NEUTROPHILS % 63.6 % (36.0-66.0); PLATELET COUNT, AUTOMATED 156 10^3/uL (150-450); RED BLOOD COUNT 4.36 10^6/uL (4.30-6.10); WHITE BLOOD COUNT 6.9 10^3/uL (4.0-10.0)
[2018-11-10] MEDS ORDERED: BACT800T5 PO (22:43)
[2018-11-10 22:46] LABS: ERYTHROCYTE SEDIMENTATION RATE 17 mm/hr (0-15)
[2018-11-10 22:47] VITALS: BP 105/66
== END 2018-11-10 22:59 | disposition home or self-care (01) ==
LOC: M ED 20:35
DX: L02.413 Cutaneous abscess of right upper limb (principal); L03.113 Cellulitis of right upper limb; R56.9 Unspecified convulsions; Z72.0 Tobacco use; Z79.899 Other long term (current) drug therapy; Z88.8 Allergy status to other drugs, medicaments and biological substances

== ENCOUNTER 2019-05-10 04:50 | Emergency (ER) | payer MEDICAID ==
[~2019-05-10] VITALS: Ht 175.3 cm; Wt 86.4 kg
[~2019-05-10 04:50] MED LIST changes: +BACT800T5 PO; +CLON0.5T2 PO; -CLON0.5T8 PO; -LORA1TAB12 PO; +LORA1TAB4 PO
[2019-05-10 05:42] LABS: BASO % 0.5 % (0.0-1.0); EOS # 0.1 10^3/uL (0.0-0.5); EOS % 0.9 % (0.0-3.0); HEMATOCRIT 42.6 % (42.0-52.0); HEMOGLOBIN 14.1 g/dl (13.5-17.5); LYMPH % 22.7 % (24.0-44.0); MEAN CORPUSCULAR HEMOGLOBIN 29.4 pg (27.0-33.0); MEAN CORPUSCULAR HGB CONC 33.1 g/dl (32.0-36.5); MEAN CORPUSCULAR VOLUME 88.9 fl (80.0-96.0); MONO # 0.6 10^3/uL (0.0-0.8); MONO % 6.4 % (0.0-5.0); PLATELET COUNT, AUTOMATED 271 10^3/uL (150-450); RED BLOOD COUNT 4.79 10^6/uL (4.30-6.10); WHITE BLOOD COUNT 8.6 10^3/uL (4.0-10.0)
[2019-05-10] MEDS ORDERED: [UNRECOGNIZED DRUG - REMARK] (05:44)
[2019-05-10 05:59] LABS: BLOOD UREA NITROGEN 13 MG/DL (7-18); CALCIUM LEVEL 8.8 MG/DL (8.5-10.1); CARBON DIOXIDE LEVEL 25 MEQ/L (21-32); CHLORIDE LEVEL 106 MEQ/L (98-107); CREATININE FOR GFR 1.01 MG/DL (0.70-1.30); GLOMERULAR FILTRATION RATE > 60.0 (>60); GLUCOSE, FASTING 93 MG/DL (70-100); POTASSIUM SERUM 4.4 MEQ/L (3.5-5.1); SODIUM LEVEL 140 MEQ/L (136-145)
[2019-05-10 06:29] LABS: AMPHETAMINES LEVEL URINE NEGATIVE (NEGATIVE); BARBITURATES URINE NEGATIVE (NEGATIVE); BENZODIAZEPINES URINE NEGATIVE (NEGATIVE); CANNABINOIDS URINE POSITIVE (NEGATIVE); COCAINE METABOLITE URINE NEGATIVE (NEGATIVE); METHADONE URINE POSITIVE (NEGATIVE); OPIATES URINE NEGATIVE (NEGATIVE); PHENCYCLIDINE URINE NEGATIVE (NEGATIVE)
[2019-05-10 06:36] LABS: CPK CREATINE PHOSPHOKINASE 106 U/L (39-308)
[2019-05-10] MEDS ORDERED: clonazePAM 1 MG TAB PO ONE (07:00)
--- NOTE | 2019-05-10 08:03 | REP ---
INDICATION: Seizure PROCEDURE: CT head without contrast COMPARISON STUDIES: No prior similar studies FINDINGS: No acute bleed or acute large vessel territorial infarct. Ventricles, cisterns and sulci within normal limits. No mass effect or midline shift. No abnormal fluid collections. Paranasal sinuses and mastoid air cells are clear. CONCLUSION: No acute findings. Normal examination. Electronically Signed by Maykel Davis MD 05/10/2019 07:55 A
[2019-05-10] MEDS ORDERED: METHADONE 10 MG TAB (S0109) PO ONE ×2 (08:30)
[2019-05-10] MEDS ORDERED: METHADONE 5 MG TAB (S0109) PO ONE (08:30)
[2019-05-10 09:00] VITALS: BP 121/86
== END 2019-05-10 09:31 | disposition home or self-care (01) ==
LOC: M ED 04:50
DX: F11.20 Opioid dependence, uncomplicated (principal); Z79.899 Other long term (current) drug therapy; Z88.8 Allergy status to other drugs, medicaments and biological substances

== ENCOUNTER 2019-10-31 16:07 | Inpatient (IN) | payer OTHER ==
[~2019-10-31] VITALS: Ht 170.2 cm; Wt 86.4 kg
[~2019-10-31 16:07] MED LIST changes: -FLUO20CA19 PO; +FLUO20CA22 PO; +[UNRECOGNIZED DRUG - REMARK]
[2019-10-31] MEDS ORDERED: METH10SO PO (18:13)
[2019-10-31] MEDS ORDERED: COMMENTS (18:24)
[2019-10-31 19:49] LABS: HEMATOCRIT 44.5 % (42.0-52.0); HEMOGLOBIN 14.6 g/dl (13.5-17.5); MEAN CORPUSCULAR HEMOGLOBIN 29.1 pg (27.0-33.0); MEAN CORPUSCULAR HGB CONC 32.8 g/dl (32.0-36.5); MEAN CORPUSCULAR VOLUME 88.6 fl (80.0-96.0); PLATELET COUNT, AUTOMATED 223 10^3/uL (150-450); RED BLOOD COUNT 5.02 10^6/uL (4.30-6.10); WHITE BLOOD COUNT 11.5 10^3/uL (4.0-10.0)
[2019-10-31 20:31] LABS: ACETAMINOPHEN LEVEL < 2.0 UG/ML (10.0-30.0); ALBUMIN 4.3 GM/DL (3.2-5.2); ALT/SGPT 63 U/L (12-78); BILIRUBIN,DIRECT 0.2 MG/DL (0.0-0.2); BILIRUBIN,TOTAL 0.5 MG/DL (0.2-1.0); BLOOD UREA NITROGEN 14 MG/DL (7-18); CALCIUM LEVEL 9.7 MG/DL (8.5-10.1); CARBON DIOXIDE LEVEL 26 MEQ/L (21-32); CHLORIDE LEVEL 104 MEQ/L (98-107); CREATININE FOR GFR 1.01 MG/DL (0.70-1.30); ETHYL ALCOHOL (ETHANOL) 0.005 % (0.000-0.010); GLOMERULAR FILTRATION RATE > 60.0 (>60); GLUCOSE, FASTING 84 MG/DL (70-100); POTASSIUM SERUM 4.1 MEQ/L (3.5-5.1); SALICYLATE LEVEL 1.9 MG/DL (5.0-30.0); SODIUM LEVEL 140 MEQ/L (136-145); TOTAL PROTEIN 7.8 GM/DL (6.4-8.2)
[2019-10-31 21:00] LABS: AMPHETAMINES LEVEL URINE POSITIVE (NEGATIVE); BARBITURATES URINE NEGATIVE (NEGATIVE); BENZODIAZEPINES URINE POSITIVE (NEGATIVE); CANNABINOIDS URINE NEGATIVE (NEGATIVE); COCAINE METABOLITE URINE NEGATIVE (NEGATIVE); METHADONE URINE POSITIVE (NEGATIVE); OPIATES URINE NEGATIVE (NEGATIVE); PHENCYCLIDINE URINE NEGATIVE (NEGATIVE)
[2019-10-31] MEDS ORDERED: LORazepam 1 MG TAB PO ONE (21:30)
[2019-10-31] MEDS ORDERED: MOM 30ML SUSPENSION UDC PO PRN (22:15)
[2019-10-31] MEDS ORDERED: ACETAMINOPHEN TAB 650MG DOSE (2X325MG) PO PRN (22:15)
[2019-10-31] MEDS ORDERED: OLANZapine ORAL DISINTEGRATING TAB 5MG PO PRN (22:15)
[2019-10-31] MEDS ORDERED: MAALOX 30 ML SUSP *UDC PO PRN (22:15)
[2019-10-31] MEDS ORDERED: traZODone 50 MG TAB PO PRN (22:15)
[2019-11-01 02:37] VITALS: BP 120/83
[2019-11-01] MEDS ORDERED: haloperidoL 5 MG TAB PO STA (04:21)
[2019-11-01] MEDS ORDERED: diphenhydrAMINE 50MG CAP PO STA (04:21)
[2019-11-01 06:45] VITALS: BP 125/79
[2019-11-01] MEDS: NICOTINE 21MG/24HR 1 EA TRANSDERMAL TD SCH ×2 (09:00→12:59)
[2019-11-01] MEDS ORDERED: METH10SO PO (09:02)
[2019-11-01] MEDS: METHADONE 10 MG TAB (S0109) PO SCH (13:01)
[2019-11-01 16:43] VITALS: BP 94/56
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
[2019-11-02 07:01] VITALS: BP 120/81
[2019-11-02] MEDS: NICOTINE 21MG/24HR 1 EA TRANSDERMAL TD SCH (08:10)
[2019-11-02] MEDS: METHADONE 10 MG TAB (S0109) PO SCH (08:10)
--- NOTE | 2019-11-02 08:22 | HPEPDOC ---
[facility] Medical History & Physical Date of Admission Oct 31, 2019 Date of Service: Nov 01, 2019 History and Physical CHIEF COMPLAINT: Anxiety HISTORY OF PRESENT ILLNESS: 39 yo male with PMHx IVDA, chronic Hep C presents to ED for severe stress and anxiety, with concern for self injury/suicidal ideation. No other medical complaints. PAST MEDICAL HISTORY: #chronic Hep C #IVDA - on methadone REVIEW OF SYSTEMS: Negative except as per HPI. HOME MEDICATIONS: Please see below. PHYSICAL EXAMINATION: VITAL SIGNS: See below. General: NAD, lying comfortably in bed HEENT: NC/AT, EOMI Lungs; CTA B/L Heart: +S1S2, RRR Abd: soft, NT, +BS Ext: no edema, multiple tattoos LABORATORY DATA: See below. MICROBIOLOGY: Please see below. ASSESSMENT/PLAN: 39 yo male for severe anxiety with concern for suicidal ideation, PMHx IVDA, chronic hep C. #anxiety/suicidal ideation - as per primary team - psychiatry #chronic Hep C - will check Hep C surveillance labs Dispo: Will continue to follow Vital Signs Vital Signs Date Time Temp Pulse Resp B/P (MAP) Pulse Ox O2 Delivery O2 Flow Rate FiO2 11/02/19 07:01 97.7 70 12 120/81 (94) Room Air 11/01/19 06:45 100 Home Medications Scheduled Methadone HCl (Methadone HCl) 10 Mg/5 Ml Solution, 90 MG PO DAILY DOSAGE OF 90MG OBTAINED FROM [employer] 11/01/19 Allergies Coded Allergies: buprenorphine (Verified Adverse Reaction, Unknown, 08/17/18) pt states he takes subutex buyt cant takes reg suboxone bc it gives him a YE and RASH naloxone (Verified Adverse Reaction, Unknown, 08/17/18) pt states he takes subutex buyt cant takes reg suboxone bc it gives him a YE and RASH A-FIB/CHADSVASC A-FIB History Current/History of A-Fib/PAF?: No LINDA BLOOD MD Nov 02, 2019 08:22
[2019-11-02] MEDS ORDERED: PARoxetine 10MG TABLET PO SCH (09:00)
--- NOTE | 2019-11-02 09:38 | MHIPNPDOC ---
[facility] Progress Note Progress Note DATE OF SERVICE: 11/02/19 HPI: Tanner is seen today for concerns regarding his depression.Tanner mentions he knows someone named Jamal from [facility], the facility he was at before. He mentions he has severe anxiety and depression which brings feelings of low self-esteem and abnormal behavior which is chronic. Tanner denies taking antidepressants and states he needs to but reports he has tried Paxil in the past. He denies having kids or being along with medical conditions such as asthma, allergies, cancer, hallucinations, and staying up at night doing terrible things they otherwise usually do not do. Tanner also denies a history of trauma or abuse growing up or in the recent past along with suicidal or homicidal thoughts. Tanner reports he has diarrhea ever since he got to the facility and noticed it started after he switched from liquid medicine to pills, and denies hot flashes. MEDICATIONS: He reports he hasn't taken Methadone recently MEDICAL HISTORY: He mentions he was in a mental health facility last year and sees a psychiatrist on the outside, Kelsea from [facility]. FAMILY HISTORY: Tanner reports his mother had anxiety and barely any depression Objective Appearance: Appears to be in pain due to stomach problems. . Well groomed. Affect: Appropriate to context. Full range. Dysphoric. Mood: Appropriately reactive. Generally good. Euthymic. Fine. Speech: Normal volume. Normal rate. Cognition: Alert, Attentive, and Oriented to person, place, time. Thought Form: Linear and goal directed. Judgement: intact as evidenced by decision making in the recent past. Insight: good insight into symptoms and treatment options. Assessment F29 Unspecified psychosis not due to a substance or known physiological condition F15.10 Other stimulant abuse, uncomplicated Plan Continue patients home medications Second trial of Paxil as patient reports it is effective in previous trials. Will then continue patients home Methadone. EKG to be repeated before patient leaves. Observation and [facility] for supportive treatment of inaudible likely secondary to withdrawal from methamphetamine and heroin. Estimated length of stay is between 1-3 days Primary goals are altered thoughts, effective coping, and substance use. Vital Signs Vital Signs Date Time Temp Pulse Resp B/P (MAP) Pulse Ox O2 Delivery O2 Flow Rate FiO2 11/02/19 07:01 97.7 70 12 120/81 (94) Room Air 11/01/19 06:45 100 Current Medications Current Medications Medications (Trade) Dose Ordered Sig/Genny Route PRN Reason Start Time Stop Time Status Last Admin Dose Admin Acetaminophen (Tylenol Tab) 650 mg Q6HP PRN PO HEADACHE or DISCOMFORT 10/31/19 22:15 Al Hydrox/Mg Hydrox/Simethicone (Mylanta) 30 ml Q4HP PRN PO HEARTBURN/INDIGESTION 10/31/19 22:15 Diphenhydramine HCl (Benadryl) 50 mg STAT STAT PO 11/01/19 04:21 11/01/19 04:22 DC 11/01/19 04:32 Haloperidol (Haldol) 5 mg STAT STAT PO 11/01/19 04:21 11/01/19 04:22 DC 11/01/19 04:32 Home Med (Med Rec Complete!) ASDIRECTED XX 10/31/19 18:30 10/31/19 18:27 DC Home Med (Med Rec Complete!) ASDIRECTED XX 11/01/19 09:15 11/01/19 09:05 DC Magnesium Hydroxide (Milk Of Magnesia) 30 ml DAILYPRN PRN PO CONSTIPATION 10/31/19 22:15 Methadone HCl (Dolophine) 90 mg DAILY PO 11/01/19 09:00 11/02/19 08:10 Nicotine (Nicoderm Cq 21mg) 1 patch DAILY TD 11/01/19 09:00 11/02/19 08:10 Olanzapine (ZyPREXA ZYDIS) 10 mg Q4HP PRN PO ANXIETY/AGITATION 10/31/19 22:15 11/01/19 03:43 Trazodone HCl (Desyrel) 50 mg QHSP PRN PO INSOMNIA 10/31/19 22:15 Allergies Coded Allergies: buprenorphine (Verified Adverse Reaction, Unknown, 08/17/18) pt states he takes subutex buyt cant takes reg suboxone bc it gives him a YE and RASH naloxone (Verified Adverse Reaction, Unknown, 08/17/18) pt states he takes subutex buyt cant takes reg suboxone bc it gives him a YE and RASH ASHLEY JEFFERS DO Nov 02, 2019 09:38
[2019-11-02] MEDS ORDERED: DICYCLOMINE 10 MG CAP PO PRN (11:15)
[2019-11-02] MEDS ORDERED: PARoxetine 10MG 5ML SUSP ORAL SYRINGE *DRAW UP EXACT DOSE PO ONE (13:00)
[2019-11-02 16:18] VITALS: BP 96/59
[2019-11-03 02:41] VITALS: BP 168/85
[2019-11-03] MEDS ORDERED: PARoxetine 10MG 5ML SUSP ORAL SYRINGE *DRAW UP EXACT DOSE PO SCH (09:00)
--- NOTE | 2019-11-03 10:03 | MHDSPDOC ---
[facility] Discharge Summary Discharge Summary DATE OF ADMISSION: Oct 31, 2019 at 22:08 DATE OF DISCHARGE: Nov 03, 2019 at 03:00 DISCHARGE DIAGNOSES: Unspecified psychotic disorder, likely substance induced opioid use disorder play substance use REASON FOR ADMISSION: 39-year-old man admitted after relapsing on multiple substances becoming bizarre CONSULTANTS INVOLVED:[ None (basic hospitalist screening)] TREATMENT AND PROGRESS ON THE UNIT : Medication changes: was continued on methadone and tried on low dose of Paxil as he had had previous good response, however, was need to be transferred to [facility] before effects could be ascertain Behavior on unit: generally friendly, however, some staff noted that they were concerned he was hoarding some sort of drugs on his person and had been perhaps using this. However, he had had a seizure reportedly and was transferred after rapid response to medical floor for further treatment Treatment attendance: attended at times Notable issues on presentation: transfer to medicine State on discharge: [unchanged] DISCHARGE ASSESSMENT: The patient a 39 year old man, with likely substance induced psychosis, presented to [facility], where they. Start on treatment but need to be transferred to medicine. MENTAL STATUS EXAMINATION ON DISCHARGE: Unable to determine patient discharged overnight PLAN/FOLLOWUP ARRANGEMENTS: please contact psychiatry consultation on day the patient is medically stable for evaluation as to whether to return to inpatient or return home, continue one-to-one sitter while medicine The amount of time spent in the coordination of care for this patient was approximately 30 minutes. Vital Signs/I&Os Vital Signs Date Time Temp Pulse Resp B/P (MAP) Pulse Ox O2 Delivery O2 Flow Rate FiO2 11/03/19 02:41 98.3 101 20 168/85 98 Room Air Laboratory Data Labs 24H Laboratory Tests 2 11/03/19 02:45: Bedside Glucose (Misc Panel) 132H Medications Scheduled Methadone HCl (Methadone HCl) 10 Mg/5 Ml Solution, 90 MG PO DAILY, (Reported) DOSAGE OF 90MG OBTAINED FROM [employer] 11/01/19 Allergies Coded Allergies: buprenorphine (Verified Adverse Reaction, Unknown, 08/17/18) pt states he takes subutex buyt cant takes reg suboxone bc it gives him a YE and RASH naloxone (Verified Adverse Reaction, Unknown, 08/17/18) pt states he takes subutex buyt cant takes reg suboxone bc it gives him a YE and RASH ASHLEY JEFFERS DO Nov 03, 2019 10:03
== END 2019-11-03 03:00 | disposition short-term general hospital (02) | DRG 773 ==
LOC: M ED 16:07 → M ED INP 22:08 → M PSY 11-01 02:32
PROVIDERS: ADMIT Psychiatry & Neurology Psychiatry; ATTEND Psychiatry & Neurology Addiction Medicine
DX: F19.159 Other psychoactive substance abuse with psychoactive substance-induced psychotic disorder, unspecified (principal); R56.9 Unspecified convulsions; F29 Unspecified psychosis not due to a substance or known physiological condition; F12.10 Cannabis abuse, uncomplicated; F11.10 Opioid abuse, uncomplicated; B18.2 Chronic viral hepatitis C; Z81.3 Family history of other psychoactive substance abuse and dependence; Z81.1 Family history of alcohol abuse and dependence; Z62.811 Personal history of psychological abuse in childhood; Z79.899 Other long term (current) drug therapy; Z88.8 Allergy status to other drugs, medicaments and biological substances

== ENCOUNTER 2019-11-03 02:51 | Inpatient (IN) | payer OTHER ==
[2019-11-03] VITALS (8 sets, daily range): BP systolic 110–136; BP diastolic 64–84; O2SAT 98–99
[~2019-11-03] VITALS: Ht 172.7 cm; Wt 83.3 kg
[~2019-11-03 02:51] MED LIST changes: +COMMENTS; +METH10SO PO
[2019-11-03] MEDS ORDERED: MAALOX 30 ML SUSP *UDC PO PRN (03:00)
[2019-11-03] MEDS ORDERED: ACETAMINOPHEN TAB 650MG DOSE (2X325MG) PO PRN (03:00)
[2019-11-03] MEDS ORDERED: MOM 30ML SUSPENSION UDC PO PRN (03:00)
[2019-11-03] MEDS ORDERED: LORazepam 2 MG/ML VIAL IV PRN (03:00)
--- NOTE | 2019-11-03 03:03 | HPEPDOC ---
[facility] Medical History & Physical Date of Admission Nov 03, 2019 Date of Service: Nov 03, 2019 Attending Physician: ANTONIO PEREZ MD History and Physical TIME OF SERVICE 248AM CC time including assessment in [facility], accompanying him for the CT scan and reassessment in PCU 45 min CHIEF COMPLAINT: Altered mental status HISTORY OF PRESENT ILLNESS: Per d/w [facility] staff , a 39 yr old M, who was admitted to [facility] for an unspecified psychotic disorder, had received his methadone earlier on yesterday evening and spent most of the evening sleeping. After 11 PM he came out to the hallway and was noted to be sleeping in the hallway floor. He was taken to his room and later on the [facility] staff heard a loud noise and found him found sitting on the floor, was not responding and had vomited and urinated on himself. At the time of our assessment he was groaning and not answering questions or following commands and did not answer questions about weather he had hit his head or had any pain. His HR was >100 and his serum glucose was 132. ROS: unobtainable PAST MEDICAL / SURGICAL HISTORY: Hx of Seizure 2/2 Benzo w/d Hx of LLE Cellulitis Chronic Hep C IVDA - on methadone SOCIAL HISTORY: hx of polysubstance abuse FAMILY HISTORY: unobtainable ALLERGIES: Please see below. PHYSICAL EXAMINATION: VITAL SIGNS: done at approx 248 T 98.3 / HR 101 / R 20 / BP 168/85 / O2 98% on RA INTEGUMENT: he is sitting up / grunting / has generalized parlor / has urinated on himself and there is clear vomitus on the floor beside him GENERAL APPEARANCE: appears toxic HEENT: NCAT / his eyes and mouth are closed / he is not following my requests to open his eyes CARDIOVASCULAR: tachycardic MUSCULOSKELETAL: ANA LAURA x4 NEUROLOGICAL: unable to asses bc of lack of pt cooperation PSYCHIATRIC: lethargic ASSESSMENT: is a 39 yr old w a hx of benzo w/d seizure, hep C and hx of IVDU, who was admitted to [facility] for management of an unspecified psychotic disorder; he will be transferred to PCU for evaluation of encephalopathy possibly 2/2 due to post-ictal state after seizure. PLAN: 1.Encephalopathy Likely 2/2 post ictal state from w/d seizure vs other drug WD vs drug intoxication vs infection Plan: stat CT head w/o contrast then transport to PCU / fall precautions, seizure precautions, frequent neurochecks / NPO w IVF pending improvement in mental status / f/u prolactin, CBC, CMP, lactic acid, UA, blood cx drug screen and lactic acid / ativan 2mg now followed by 2mg PRN for seizures 2. Psychosis NOS Plan: 1:1 sitter / day time team can consult Psych DVT Px w SCDs Dispo: possibly back to [facility] vs home after more than 2 midnight's stay LATE ENTRY 505 AM Pt's dose of ativan that was ordered was delayed pending access he had another seizure at around 5AM Blood work is still pending CT head unremarkable Plan: 1000mg of Kepraa IV/ EEG / the day time team may consider Neuro consult if indicated after the rest of the work up returns Home Medications Scheduled Methadone HCl (Methadone HCl) 10 Mg/5 Ml Solution, 90 MG PO DAILY DOSAGE OF 90MG OBTAINED FROM [employer] 11/01/19 Allergies Coded Allergies: buprenorphine (Verified Adverse Reaction, Unknown, 08/17/18) pt states he takes subutex buyt cant takes reg suboxone bc it gives him a YE and RASH naloxone (Verified Adverse Reaction, Unknown, 08/17/18) pt states he takes subutex buyt cant takes reg suboxone bc it gives him a YE and RASH A-FIB/CHADSVASC A-FIB History Current/History of A-Fib/PAF?: No Current PO Anticoag Therapy: No ANTONIO PEREZ MD Nov 03, 2019 03:03
--- NOTE | 2019-11-03 03:11 | REPVR ---
PROCEDURE INFORMATION: Exam: CT Head Without Contrast Exam date and time: 11/03/2019 2:53 AM Age: 39 years old Clinical indication: Other: Seizure TECHNIQUE: Imaging protocol: Computed tomography of the head without contrast. Radiation optimization: All CT scans at this facility use at least one of these dose optimization techniques: automated exposure control; mA and/or kV adjustment per patient size (includes targeted exams where dose is matched to clinical indication); or iterative reconstruction. COMPARISON: CT Head without contrast 05/10/2019 6:36 AM FINDINGS: Brain: Normal. No hemorrhage. Unremarkable white matter. No mass effect. Ventricles: Normal. No ventriculomegaly. Bones/joints: Unremarkable. No acute fracture. Sinuses: Minimal paranasal sinus disease. Mastoid air cells: Partial opacification of the left mastoid air cells. Soft tissues: Unremarkable. IMPRESSION: No acute intracranial abnormality. Electronically signed by: Omar Kidd On 11/03/2019 03:11:07 AM
[2019-11-03] MEDS ORDERED: LORazepam 2 MG/ML VIAL IM STA (04:28)
[2019-11-03] MEDS ORDERED: LORazepam 2 MG/ML VIAL As Ordered ONE (04:53)
[2019-11-03] MEDS: NS 1,000 ML IV SCH ×3 (05:24→20:36)
[2019-11-03 05:49] LABS: HEMATOCRIT 41.8 % (42.0-52.0); HEMOGLOBIN 13.6 g/dl (13.5-17.5); MEAN CORPUSCULAR HEMOGLOBIN 28.8 pg (27.0-33.0); MEAN CORPUSCULAR HGB CONC 32.5 g/dl (32.0-36.5); MEAN CORPUSCULAR VOLUME 88.6 fl (80.0-96.0); PLATELET COUNT, AUTOMATED 233 10^3/uL (150-450); RED BLOOD COUNT 4.72 10^6/uL (4.30-6.10); WHITE BLOOD COUNT 15.2 10^3/uL (4.0-10.0)
[2019-11-03] MEDS ORDERED: levETIRAcetam INJection 1,000 MG in D5W 100 ML IV ONE (06:00)
[2019-11-03 06:15] LABS: BILIRUBIN,TOTAL 0.5 MG/DL (0.2-1.0); CALCIUM LEVEL 9.1 MG/DL (8.5-10.1); CREATININE FOR GFR 1.43 MG/DL (0.70-1.30); GLOMERULAR FILTRATION RATE 59.2 (>60); TOTAL PROTEIN 7.4 GM/DL (6.4-8.2)
[2019-11-03] MEDS: ENOXAPARIN 40MG/0.4ML SYRINGE (J1650 PER 10MG) SC SCH (08:23)
[2019-11-03 10:18] LABS: PROLACTIN 32.1 NG/ML (2.1-17.7)
--- NOTE | 2019-11-03 14:03 | IPNPDOC ---
Text Note Date of Service The patient was seen on 11/03/19. NOTE Subjective: -Sleeping, not waking up for more than a few seconds -Had a witnessed seizure at 5AM and got ativan, has been sleeping since then. Had an EEG this morning Objective: VITAL SIGNS: see below. GENERAL: NAD, asleep INTEGUMENT: No noted rashes or lesions HEENT: NCAT, eyes and mouth are closed, reactive pupils, upset with my light on his eyes CARDIOVASCULAR: tachycardic, rhythm regular, no m/r/g NEUROLOGICAL: unable to asses bc he is sleeping and drowsy. Reactive pupils PSYCHIATRIC: lethargic ASSESSMENT: 39 yr old man with a hx of benzo use disorder with a history of benzo withdrawal seizures, hep C and hx of IVDU, who was admitted to [facility] for manage ment of an unspecified psychotic disorder and now transferred to PCU after seizure PLAN: 1.Encephalopathy -2/2 post ictal state from w/d seizure vs other drug WD vs drug intoxication vs infection -CT head w/o contrast wnl -fall and seizure precautions -NPO w IVF pending improvement in mental status -f/u prolactin -CBC, CMP, lactic acid wnl -UA pending collection Seizure activity; likely 2/2 benzo withdrawal but also has a history of PSUD -s/p keppra 1g -ativan PRN for seizure activity -CT head wnl -f/u EEG read -pending infectious workup with UA, BCx 2. Psychosis NOS Plan: 1:1 sitter / to consult Psych when close to medical clearance to return to the [facility] DVT Px w SCDs Dispo: possibly back to [facility] once medically stable VS,Fishbone, I+O VS, Fishbone, I+O Laboratory Tests 11/03/19 05:33 Vital Signs Date Time Temp Pulse Resp B/P (MAP) Pulse Ox O2 Delivery O2 Flow Rate FiO2 11/03/19 11:51 100.8 93 18 110/64 (79) 98 Room Air STEPHANIE MUNOZ MD Nov 03, 2019 14:03
[2019-11-04] VITALS (7 sets, daily range): BP systolic 118–152; BP diastolic 70–92
[2019-11-04] MEDS: NS 1,000 ML IV SCH ×2 (03:43→07:10)
[2019-11-04 05:56] LABS: HEMATOCRIT 37.5 % (42.0-52.0); HEMOGLOBIN 12.3 g/dl (13.5-17.5); MEAN CORPUSCULAR HEMOGLOBIN 29.3 pg (27.0-33.0); MEAN CORPUSCULAR HGB CONC 32.8 g/dl (32.0-36.5); MEAN CORPUSCULAR VOLUME 89.3 fl (80.0-96.0); PLATELET COUNT, AUTOMATED 197 10^3/uL (150-450); WHITE BLOOD COUNT 9.9 10^3/uL (4.0-10.0)
[2019-11-04 06:14] LABS: BLOOD UREA NITROGEN 12 MG/DL (7-18); CALCIUM LEVEL 8.2 MG/DL (8.5-10.1); CARBON DIOXIDE LEVEL 25 MEQ/L (21-32); CHLORIDE LEVEL 111 MEQ/L (98-107); CREATININE FOR GFR 0.74 MG/DL (0.70-1.30); GLOMERULAR FILTRATION RATE > 60.0 (>60); GLUCOSE, FASTING 69 MG/DL (70-100); POTASSIUM SERUM 3.9 MEQ/L (3.5-5.1); SODIUM LEVEL 143 MEQ/L (136-145)
[2019-11-04] MEDS: ENOXAPARIN 40MG/0.4ML SYRINGE (J1650 PER 10MG) SC SCH (08:35)
[2019-11-04] MEDS ORDERED: SLF 3 ML SYR IV PRN (16:00)
--- NOTE | 2019-11-04 16:04 | IPNPDOC ---
Text Note Date of Service The patient was seen on 11/04/19. NOTE Subjective: -Awake, alert, tolerating regular diet, walking to the bathroom. -No pain or other physical complaints at this time Objective: VITAL SIGNS: see below. GENERAL: NAD, awake, sitting up, eating breakfast INTEGUMENT: No noted rashes or lesions HEENT: NCAT, PERRLA, EOMI, MMM CARDIOVASCULAR: RRR, no m/r/g NEUROLOGICAL: Gait wnl, CN2-12 intact, no dysarthria, clear speech PSYCHIATRIC: lethargic ASSESSMENT: 39 yr old man with a hx of benzo use disorder with a history of benzo withdrawal seizures, hep C and hx of IVDU, who was admitted to [facility] for managem ent of an unspecified psychotic disorder and now transferred to PCU after seizure. Doing well with no more seizure activity over the last 36 hours, pending evaluation to return to psychiatry. PLAN: 1.Encephalopathy -2/2 post ictal state from w/d seizure vs other drug intoxication vs unlikely infection -CT head w/o contrast wnl -fall and seizure precautions -DC IVF, s/p aggressive hydration -f/u prolactin -CBC, CMP, lactic acid wnl -UA bland Seizure activity; likely 2/2 benzo withdrawal but also has a history of PSUD -s/p keppra 1g -ativan PRN for seizure activity -CT head wnl -f/u EEG read - infectious workup with UA, BCx negative 2. Psychosis NOS Plan: 1:1 sitter / pending Psych consult, now medically cleared. DVT Px w SCDs Dispo: pending psych evaluation for potential return to [facility] VS,Fishbone, I+O VS, Fishbone, I+O Laboratory Tests 11/04/19 05:22 Vital Signs Date Time Temp Pulse Resp B/P (MAP) Pulse Ox O2 Delivery O2 Flow Rate FiO2 11/04/19 12:00 98.2 91 20 118/84 (95) 99 Room Air I&O- Last 24 Hours up to 6 AM 11/04/19 06:00 Intake Total 1855 ml Output Total 920 ml Balance 935 ml STEPHANIE MUNOZ MD Nov 04, 2019 16:04
--- NOTE | 2019-11-04 20:59 | MHIPNPDOC ---
[facility] Progress Note Progress Note DATE OF SERVICE: 11/04/19 HISTORY: 39 year old male with h/o other specified depressive disorder, amphetamine use disorder, opioid use disorder who recently presented with a seizure while being hospitalized at [facility] for his psychiatric problems and got transferrd to the Medical floor for treatment and stabilization. VITAL SIGNS: See below. NEW TEST RESULTS: See below CURRENT MEDICATIONS: See below. MENTAL STATUS EXAMINATION: Patient is a 39-year old male, who is somnolent, cooperative, dressed in hospital clothes, with fair eye contact. Speech: Is slow, at times needs prompting. Normal tone and volume.. Thought processes including: Linear but he is confused Thought content: He denies suicidal and homicidal ideation, he can't tell me if he is hallucinating or not because he is falling asleep while I talk to him. He is not paranoid, he is not guarded but he tells me he feels depressed. Description of associations: Not loose but is difficult for him to focus on the conversation Description of abnormal or psychotic thoughts: he denies SI/HI, denies bizarre/grandiose/paranoid delusions, denies TAV hallucinations. Judgment: Limited at this time ( he is mildly confused). Insight: poor. Orientation: he is oriented to place and persona dn partially to date and time. He knows this is the month of October and to is Thursday but he thinks is November 08. He needs to be reminded he is not at the [facility] anymore Recent and remote memory: Recent memory is a little blurry at this time Attention span and concentration: he tends to get easily distracted, because he is a little bit confused. Mood: Depressed Affect: congruent with mood. DIAGNOSES: Other specified depressive disorder. Rule out substance-induced depressive disorder. Stimulant use disorder. Cannabis use disorder. Opioid use disorder, on a methadone program. ASSESSMENT: the patient seems to be a little bit confused, encephalopathic. This is not secondary to depression or other psychiatric illnesses, most likely secondary to his drug use and to recent seizure activity that has irish treated at the medical floor. The patient is able to contract for safety, he denies SI but he says he feels depressed. He tells me he won't hurt himself and I don't think he has the energy or the cognitive ability to attempt against his life at this time. I feel he is more at risk because of his post ictal state. I think he can be off the sitter at this time, he is in front of Nurse station where he can be easily monitored but if he becomes more active and recovers his mental clarity, he will need to be on a sitter. he also could benefit of having a sittr while he is awake and off the sitter while sleeping. I don't think he is ready to be transferred to [facility] at this time. Tomorrow, Dr. Cole will be store operations associate and can re evaluate him. MANAGEMENT PLAN: As above TIME SPENT: 20 minutes. Vital Signs Vital Signs Date Time Temp Pulse Resp B/P (MAP) Pulse Ox O2 Delivery O2 Flow Rate FiO2 11/04/19 19:01 98.2 79 18 123/81 (95) 98 Room Air Laboratory Data 24H Labs Laboratory Tests 2 11/04/19 05:22: Nucleated Red Blood Cells % (auto) 0.0, Anion Gap 7L, Glomerular Filtration Rate > 60.0, Calcium Level 8.2L 11/04/19 10:42: Methicillin-Resist S.aureus DNA PCR NOT DETECTED CBC/BMP Laboratory Tests 11/04/19 05:22 Current Medications Current Medications Medications (Trade) Dose Ordered Sig/Genny Route PRN Reason Start Time Stop Time Status Last Admin Dose Admin Acetaminophen (Tylenol Tab) 650 mg Q4H PRN PO PAIN OR FEVER 11/03/19 03:00 Al Hydrox/Mg Hydrox/Simethicone (Mylanta) 30 ml DAILY PRN PO DYSPEPSIA 11/03/19 03:00 Enoxaparin Sodium (Lovenox) 40 mg DAILY SC 11/03/19 09:00 11/04/19 08:35 Lorazepam (Ativan) 2 mg Q2HP PRN IV SEIZURES 11/03/19 03:00 11/03/19 05:00 Lorazepam (Ativan) 2 mg STAT STAT IM 11/03/19 04:28 11/03/19 04:29 DC Magnesium Hydroxide (Milk Of Magnesia) 30 ml DAILY PRN PO CONSTIPATION 11/03/19 03:00 Sodium Chloride 1,000 ml @ 150 mls/hr Q6H40M IV 11/03/19 04:30 11/04/19 15:50 DC 11/04/19 07:10 Sodium Chloride (Saline Lock Flush) 2 ml ASDIRECTED PRN IV SEE LABEL COMMENTS 11/04/19 16:00 Sodium Chloride (Saline Lock Flush) 2 ml SLF IV 11/04/19 22:00 Allergies Coded Allergies: buprenorphine (Verified Adverse Reaction, Unknown, 08/17/18) pt states he takes subutex buyt cant takes reg suboxone bc it gives him a YE and RASH naloxone (Verified Adverse Reaction, Unknown, 08/17/18) pt states he takes subutex buyt cant takes reg suboxone bc it gives him a YE and RASH CARLEY VERA MD Nov 04, 2019 20:31
--- NOTE | 2019-11-04 21:09 | EEG ---
DATE OF PROCEDURE: 11/03/2019 REFERRING PHYSICIAN: Dr. Milady Seals EEG NUMBER: [id number] DIAGNOSIS: Altered mental status. HISTORY: The patient is a 39-year-old man who was admitted at [facility] inpatient mental health unit due to psychotic disorder. He was found on the floor of the room not responding with vomiting and urinary incontinence. The patient has a history of seizure due to withdrawal from benzodiazepines, hepatitis C, intravenous drug use. He is currently on Keppra, Ativan, Lovenox, etc. TECHNICAL DESCRIPTION: This digital EEG was recorded by 21 scalp, ear and two EKG electrodes and was reviewed in bipolar and referential montages following reformatting in 10-20 international electrode placement system. INTERPRETATION: The patient was noted to be mostly in drowsy state during this EEG. Background rhythm consisted of 6-7 Hz theta activity measuring 15-40 microvolts in amplitude, which was symmetric bilaterally. Stage II and III sleep were reviewed throughout this recording. Hyperventilation could not be performed. Photic stimulation remained unremarkable. EKG revealed normal sinus rhythm. No focal, lateralizing or epileptiform abnormalities were seen. No relevant clinical activity was noted. CONCLUSION: This EEG in mostly drowsy and asleep state is abnormal due to presence of mild generalized slowing and stage II and III sleep throughout consistent with nonspecific diffuse cerebral dysfunction, such as seen in encephalopathy due to multiple potential causes including toxic, metabolic, infectious, autoimmune, medication related or multifocal structural brain abnormalities. No epileptiform abnormalities were seen. Clinical correlation is recommended.
[2019-11-04] MEDS: SLF 3 ML SYR IV SCH (22:00)
[2019-11-05] VITALS (7 sets, daily range): BP systolic 112–146; BP diastolic 68–94
[2019-11-05] MEDS: SLF 3 ML SYR IV SCH ×3 (06:08→23:16)
[2019-11-05 07:42] LABS: HEMATOCRIT 41.5 % (42.0-52.0); HEMOGLOBIN 13.6 g/dl (13.5-17.5); MEAN CORPUSCULAR HEMOGLOBIN 28.8 pg (27.0-33.0); MEAN CORPUSCULAR HGB CONC 32.8 g/dl (32.0-36.5); MEAN CORPUSCULAR VOLUME 87.7 fl (80.0-96.0); PLATELET COUNT, AUTOMATED 233 10^3/uL (150-450); RED BLOOD COUNT 4.73 10^6/uL (4.30-6.10); WHITE BLOOD COUNT 10.3 10^3/uL (4.0-10.0)
[2019-11-05 07:56] LABS: BLOOD UREA NITROGEN 6 MG/DL (7-18); CARBON DIOXIDE LEVEL 27 MEQ/L (21-32); CHLORIDE LEVEL 107 MEQ/L (98-107); CREATININE FOR GFR 0.66 MG/DL (0.70-1.30); GLOMERULAR FILTRATION RATE > 60.0 (>60); GLUCOSE, FASTING 101 MG/DL (70-100); POTASSIUM SERUM 4.2 MEQ/L (3.5-5.1); SODIUM LEVEL 140 MEQ/L (136-145)
[2019-11-05] MEDS: ENOXAPARIN 40MG/0.4ML SYRINGE (J1650 PER 10MG) SC SCH (08:21)
--- NOTE | 2019-11-05 14:33 | IPNPDOC ---
Text Note Date of Service The patient was seen on 11/05/19. NOTE Subjective: -No complaints at this time Objective: VITAL SIGNS: see below. GENERAL: NAD, awake, sitting up, eating breakfast INTEGUMENT: No noted rashes or lesions HEENT: NCAT, PERRLA, EOMI, MMM CARDIOVASCULAR: RRR, no m/r/g NEUROLOGICAL: Gait wnl, CN2-12 intact, no dysarthria, clear speech PSYCHIATRIC: AOx3, knows that Al is president, his , [facility], [place], 2019, went to school with Dr. Cole etc. Labs: stable EEG: EEG in mostly drowsy and asleep state is abnormal due to presence of mild generalized slowing and stage II and III sleep throughout consistent with nonspecific diffuse cerebral dysfunction, such as seen in encephalopathy due to multiple potential causes including toxic, metabolic, infectious, autoimmune, medication related or multifocal structural brain abnormalities. No epileptiform abnormalities were seen. ASSESSMENT: 39 yr old man with a hx of benzo use disorder with a history of benzo withdrawal seizures, hep C and hx of IVDU, who was admitted to [facility] for management of an unspecified psychotic disorder and now transferred to PCU after seizure. Without noted seizure activity over the last 3 days, doing well. PLAN: 1.Encephalopathy: likely combination of toxic and metabolic. resolved. -2/2 post ictal state from w/d seizure vs other drug intoxication vs unlikely infection -CT head w/o contrast wnl -EEG showed slowing c/w encephalopathy without terese epileptiform activity -fall and seizure precautions -f/u prolactin -CBC, CMP, lactic acid wnl -UA bland Seizure activity; likely 2/2 benzo withdrawal but also has a history of PSUD -s/p keppra 1g -ativan PRN for seizure activity -CT head wnl -EEG showed slowing c/w encephalopathy without terese epileptiform activity - infectious workup with UA, BCx negative 2. Psychosis NOS Plan: 1:1 sitter while awake/ per initial Psych consult not yet ready for [facility] transfer due to encephalopathy, but this morning is doing well, so Dr. Cole will see him, and they do not have beds for now, so will likely go to [facility] for discharge to [facility] on Thursday DVT Px w SCDs Dispo: medsur, pending psych eval for transfer back to [facility] VS,Fishbone, I+O VS, Fishbone, I+O Vital Signs Date Time Temp Pulse Resp B/P (MAP) Pulse Ox O2 Delivery O2 Flow Rate FiO2 11/05/19 04:00 97.8 85 18 134/82 (99) 99 Room Air I&O- Last 24 Hours up to 6 AM 11/05/19 05:59 Intake Total 2335 ml Output Total 2900 ml Balance -565 ml STEPHANIE MUNOZ MD Nov 05, 2019 07:07
[2019-11-05] MEDS ORDERED: ONDANSETRON 4 MG TAB PO PRN (23:15)
[2019-11-06] MEDS: SLF 3 ML SYR IV SCH ×2 (06:26→14:40)
[2019-11-06] MEDS: ENOXAPARIN 40MG/0.4ML SYRINGE (J1650 PER 10MG) SC SCH (08:15)
[2019-11-06 10:00] VITALS: BP 135/81
--- NOTE | 2019-11-06 12:40 | MHIPNPDOC ---
[facility] Progress Note Progress Note DATE OF SERVICE: 11/06/19 HPI: Tanner presents today for a follow up. He is doing well and denies any SI or HI. He states he wants to be discharged for home. He had a history of seizure-like symptoms and confusion. Objective Appearance: Well nourished. Well groomed. Behavior: Pleasant. Cooperative with good eye contact. Engaged. Affect: Full range. Appropriate to context. Mood: Generally good. Euthymic. Appropriately reactive. Speech: Normal rate. Normal volume. Motor: No gross motor abnormalities. Cognition: Alert, Attentive, and Oriented to person, place, time. Memory: No formal testing. No gross abnormalities of short or mcc memory noted during interview. Thought Form: Linear and goal directed. Thought Content: No thoughts of self harm. No evidence of aggressive or homicidal ideation. No evidence of suicidal ideation. No evidence of delusions. Perception: No perceptual abnormalities noted. Judgement: intact as evidenced by decision making in the recent past. Insight: good insight into symptoms and treatment options. Assessment F33.9 Major depressive disorder, recurrent, unspecified Plan Discharge to home. At this time, from a psychiatric perspective, he does not meet involuntary criteria and declines voluntary. The patient at the time of discharge did not meet criteria for involuntary admission/extension due to having a normal mental status exam, fair insight into the situation, They are engaged in the discharge process, as well as being friendly and amenable in behavioral control and havent been engaging in any observed concerning behavior or ideation recently. They decline voluntary extension/admission at this time and must be discharged in good lewis, as Im unable to make a case for holding the patient against their will. They may have historical risk factors of admissions and other interactions with psychiatry however, those are not modifiable from a clinical perspective. The patient will need to be discharged in good lewis. Vital Signs Vital Signs Date Time Temp Pulse Resp B/P (MAP) Pulse Ox O2 Delivery O2 Flow Rate FiO2 11/06/19 10:00 98.9 85 20 135/81 (99) 98 Room Air Current Medications Current Medications Medications (Trade) Dose Ordered Sig/Genny Route PRN Reason Start Time Stop Time Status Last Admin Dose Admin Acetaminophen (Tylenol Tab) 650 mg Q4H PRN PO PAIN OR FEVER 11/03/19 03:00 Al Hydrox/Mg Hydrox/Simethicone (Mylanta) 30 ml DAILY PRN PO DYSPEPSIA 11/03/19 03:00 Enoxaparin Sodium (Lovenox) 40 mg DAILY SC 11/03/19 09:00 11/06/19 08:15 Lorazepam (Ativan) 2 mg Q2HP PRN IV SEIZURES 11/03/19 03:00 11/03/19 05:00 Lorazepam (Ativan) 2 mg STAT STAT IM 11/03/19 04:28 11/03/19 04:29 DC Magnesium Hydroxide (Milk Of Magnesia) 30 ml DAILY PRN PO CONSTIPATION 11/03/19 03:00 Ondansetron HCl (Zofran) 4 mg Q6HP PRN PO NAUSEA OR VOMITING 11/05/19 23:15 11/05/19 23:16 Sodium Chloride 1,000 ml @ 150 mls/hr Q6H40M IV 11/03/19 04:30 11/04/19 15:50 DC 11/04/19 07:10 Sodium Chloride (Saline Lock Flush) 2 ml ASDIRECTED PRN IV SEE LABEL COMMENTS 11/04/19 16:00 Sodium Chloride (Saline Lock Flush) 2 ml SLF IV 11/04/19 22:00 11/06/19 06:26 Allergies Coded Allergies: buprenorphine (Verified Adverse Reaction, Unknown, 08/17/18) pt states he takes subutex buyt cant takes reg suboxone bc it gives him a YE and RASH naloxone (Verified Adverse Reaction, Unknown, 08/17/18) pt states he takes subutex buyt cant takes reg suboxone bc it gives him a YE and RASH ASHLEY JEFFERS DO Nov 06, 2019 12:40
[2019-11-06 14:00] VITALS: BP 145/85
--- NOTE | 2019-11-06 14:29 | IPNPDOC ---
Text Note Date of Service The patient was seen on 11/06/19. NOTE Subjective: -No complaints at this time. -Yesterday evening, he became acutely confused, laughing, asking where he was, not able to corroborate that he was recently in [facility]. However had a nonfocal neurological exam at the time with clear speech but slowed responses. This morning is back to baseline again. Objective: VITAL SIGNS: see below. GENERAL: NAD, awake, sitting up, eating breakfast INTEGUMENT: No noted rashes or lesions HEENT: NCAT, PERRLA, EOMI, MMM CARDIOVASCULAR: RRR, no m/r/g NEUROLOGICAL: Gait wnl, CN2-12 intact, no dysarthria, clear speech PSYCHIATRIC: AOx3 Labs: no labs today. Has been stable. EEG: EEG in mostly drowsy and asleep state is abnormal due to presence of mild generalized slowing and stage II and III sleep throughout consistent with n onspecific diffuse cerebral dysfunction, such as seen in encephalopathy due to multiple potential causes including toxic, metabolic, infectious, autoimmune, medication related or multifocal structural brain abnormalities. No epileptiform abnormalities were seen. ASSESSMENT: 39 yr old man with a hx of benzo use disorder with a history of benzo withdrawal seizures, hep C and hx of IVDU, who was admitted to [facility] for management of an unspecified psychotic disorder and now transferred to PCU after seizure. Without noted seizure activity over the last 3 days, doing well. PLAN: 1.Encephalopathy: likely combination of toxic and metabolic. resolved. -2/2 post ictal state from w/d seizure vs other drug intoxication vs unlikely infection -CT head w/o contrast wnl -EEG showed slowing c/w encephalopathy without terese epileptiform activity -fall and seizure precautions -f/u prolactin -CBC, CMP, lactic acid wnl -UA bland Seizure activity; likely 2/2 benzo withdrawal but also has a history of PSUD -s/p keppra 1g -ativan PRN for seizure activity -CT head wnl -EEG showed slowing c/w encephalopathy without terese epileptiform activity - infectious workup with UA, BCx negative 2. Psychosis NOS Plan: 1:1 sitter while awake/ per initial Psych consult not yet ready for [facility] transfer due to encephalopathy, but this morning is doing well, so Dr. Cole will see him, and they do not have beds for now, [facility] to [facility] on Thursday -Is having waxing and waning mentation particularly in the late afternoon with stable neurological evaluation, unclear etiology? DVT ppx: SCDs Dispo: medsurg, pending psych re-eval for transfer back to [facility] VS,Fishbone, I+O VS, Fishbone, I+O Vital Signs Date Time Temp Pulse Resp B/P (MAP) Pulse Ox O2 Delivery O2 Flow Rate FiO2 11/05/19 22:35 98.0 74 18 146/94 (111) 98 11/05/19 20:00 Room Air I&O- Last 24 Hours up to 6 AM 11/06/19 06:00 Intake Total 750 ml Output Total 2650 ml Balance -1900 ml STEPHANIE MUNOZ MD Nov 06, 2019 07:31
--- NOTE | 2019-11-06 16:36 | DS.PDOC ---
Discharge Summary General Date of Admission Nov 03, 2019 at 03:30 Date of Discharge 11/06/2019 Attending Physician: STEPHANIE MUNOZ MD Discharge Summary PROCEDURES PERFORMED DURING STAY: None ADMITTING DIAGNOSES: 1. Post ictal AMS DISCHARGE DIAGNOSES: Postictal encephalopathy Seizure likel 2/2 benzodiazepine withdrawal Hx of Seizure 2/2 Benzo w/d Hx of LLE Cellulitis Chronic Hep C PSUD - on methadone COMPLICATIONS/CHIEF COMPLAINT: AMS. HISTORY OF PRESENT ILLNESS: 39 yr old man with a hx of benzo use disorder with a history of benzo withdrawal seizures, hep C and hx of IVDU, who was admitted to [facility] for management of an unspecified psychotic disorder and had received his methadone earlier and a few hours later was noted to be sleeping in the hallway floor. He was taken to his room and later on the [facility] staff heard a loud noise and found him found sitting on the floor, was not responding and had vomited and urinated on himself. At the time of internal medicine assessment, he was groaning and not answering questions or following commands and did not answer questions about weather he had hit his head or had any pain and was suspected to be in an p ostictal state and admitted to internal medicine. HOSPITAL COURSE: While on medicine, he had one more witnessed seizure and was given ativan with good effect. He was given keppra 1000mg and did not have anymore seizures but was quite drowsy. CT head was negative for acute pathology, UA was bland and had a spot EEG that is still pending a final read. He was hydrated for lacticemia and it resolved and is now being discharged home after psychiatric evaluation by Dr. Cole who deemed safe for home discharge with PCP follow up as well as behavioral health follow up per the instruction of Dr. Cole. DISCHARGE MEDICATIONS: Please see below. ALLERGIES: Please see below. PHYSICAL EXAMINATION ON DISCHARGE: VITAL SIGNS: Please see below. GENERAL: NAD, alert, awake INTEGUMENT: No noted rashes or lesions HEENT: NCAT, PERRLA, EOMI, MMM PULM: CTAB CARDIOVASCULAR: RRR, no m/r/g NEUROLOGICAL: Alert, awake, CN2-12 intact, moving all extremities, speech clear, oriented x 3 LABORATORY DATA: Please see below. IMAGING: CT head: No acute intracranial abnormalities PROGNOSIS: Good ACTIVITY: As tolerated DIET: Regular DISCHARGE PLAN: Home with PCP and behavioral health follow up plans DISPOSITION: Home DISCHARGE INSTRUCTIONS: 1. Home with PCP and behavioral health follow up plans ITEMS TO FOLLOWUP ON ON OUTPATIENT: 1. Seizure activity DISCHARGE CONDITION: Stable TIME SPENT ON DISCHARGE: 36 minutes. Vital Signs/I&Os Vital Signs Date Time Temp Pulse Resp B/P (MAP) Pulse Ox O2 Delivery O2 Flow Rate FiO2 11/04/19 08:00 98.2 62 18 152/92 (112) 99 Room Air I&O- Last 24 Hours up to 6 AM 11/04/19 06:00 Intake Total 1855 ml Output Total 920 ml Balance 935 ml Laboratory Data Labs 24H Laboratory Tests 2 11/03/19 10:45: Lactic Acid Followup at 4 Hours 1.2 11/03/19 20:30: Urine Color YELLOW, Urine Appearance CLEAR, Urine pH 5.0, Urine Specific [place] 1.021, Urine Protein NEGATIVE, Urine Glucose (UA) NEGATIVE, Urine Ketones TRACEH, Urine Blood NEGATIVE, Urine Nitrite NEGATIVE, Urine Bilirubin NEGATIVE, Urine Urobilinogen 0.2, Urine Leukocyte Esterase NEGATIVE, Urine WBC (Auto) 1, Urine RBC (Auto) 0, Urine Hyaline Casts (Auto) 0, Urine Bacteria (Auto) NEGATIVE, Urine Squamous Epithelial Cells 0, Urine Mucus (Auto) SMALL, Urine Sperm (Auto) 11/04/19 05:22: Nucleated Red Blood Cells % (auto) 0.0, Anion Gap 7L, Glomerular Filtration Rate > 60.0, Calcium Level 8.2L CBC/BMP Laboratory Tests 11/04/19 05:22 Microbiology Microbiology 11/03/19 Blood Culture - Preliminary, Resulted No growth after 24 hours . All specim... Discharge Medications Scheduled Methadone HCl (Methadone HCl) 10 Mg/5 Ml Solution, 90 MG PO DAILY, (Reported) DOSAGE OF 90MG OBTAINED FROM [facility] [employer] [facility] 11/01/19 Allergies Coded Allergies: buprenorphine (Verified Adverse Reaction, Unknown, 08/17/18) pt states he takes subutex buyt cant takes reg suboxone bc it gives him a YE and RASH naloxone (Verified Adverse Reaction, Unknown, 08/17/18) pt states he takes subutex buyt cant takes reg suboxone bc it gives him a YE and RASH STEPHANIE MUNOZ MD Nov 04, 2019 09:21
== END 2019-11-06 17:35 | disposition left against medical advice (07) | DRG 53 ==
LOC: EEVIPCON 03:30 → M PCU 03:30 → M MSPAV 11-05 22:34
PROVIDERS: ADMIT Internal Medicine; ATTEND Internal Medicine
DX: R56.9 Unspecified convulsions (principal); G93.49 Other encephalopathy; G93.89 Other specified disorders of brain; F33.9 Major depressive disorder, recurrent, unspecified; F29 Unspecified psychosis not due to a substance or known physiological condition; B18.2 Chronic viral hepatitis C; F15.10 Other stimulant abuse, uncomplicated; F12.10 Cannabis abuse, uncomplicated; F11.10 Opioid abuse, uncomplicated; F19.129 Other psychoactive substance abuse with intoxication, unspecified; Z79.899 Other long term (current) drug therapy; Z88.8 Allergy status to other drugs, medicaments and biological substances; F19.188 Other psychoactive substance abuse with other psychoactive substance-induced disorder

== ENCOUNTER 2019-11-10 18:02 | Emergency (ER) | payer OTHER ==
[~2019-11-10] VITALS: Ht 170.2 cm; Wt 81.1 kg
[2019-11-10] MEDS ORDERED: CLON-412 (18:14)
[2019-11-10] MEDS ORDERED: hydrOXYzine 25 MG TAB PO ONE (18:45)
[2019-11-10] MEDS ORDERED: HYDR-3363 PO (20:02)
[2019-11-10] MEDS ORDERED: CLONI1TA PO (20:02)
[2019-11-10 20:15] VITALS: BP 123/89
== END 2019-11-10 20:18 | disposition home or self-care (01) ==
LOC: M ED 18:02
DX: F41.9 Anxiety disorder, unspecified (principal); F17.200 Nicotine dependence, unspecified, uncomplicated; F11.11 Opioid abuse, in remission; Z88.8 Allergy status to other drugs, medicaments and biological substances

== ENCOUNTER 2022-07-11 16:45 | Emergency (ER) | payer OTHER ==
[~2022-07-11] VITALS: Ht 175.3 cm; Wt 89.5 kg
[~2022-07-11 16:45] MED LIST changes: +CLON-412; +CLONI1TA PO; +ESCI10TA16 PO; -ESCI10TA2 PO; -ESCI20TA PO; +ESCI20TA16 PO; +GABA-283 PO; -GABA-845 PO; +HYDR-3363 PO; -PAXI10TA12 PO; +PAXI10TA13 PO
[2022-07-11] MEDS ORDERED: NALOXONE 2MG/2ML SYRINGE PRN (17:00)
[2022-07-11] MEDS ORDERED: ONDANSETRON 4MG ORAL DISINTEGRATING TAB PO ONE (17:00)
[2022-07-11 19:30] VITALS: BP 131/94
== END 2022-07-11 19:53 | disposition home or self-care (01) ==
LOC: EDBD 16:45 → M ED 16:45
DX: T40.1X1A Poisoning by heroin, accidental (unintentional), initial encounter (principal); B19.20 Unspecified viral hepatitis C without hepatic coma; F19.10 Other psychoactive substance abuse, uncomplicated; Z88.8 Allergy status to other drugs, medicaments and biological substances; Z79.899 Other long term (current) drug therapy

== ENCOUNTER 2022-10-25 14:18 | Emergency (ER) | payer OTHER ==
[~2022-10-25] VITALS: Ht 175.3 cm; Wt 95.2 kg
[~2022-10-25 14:18] MED LIST changes: +LORA1TAB23 PO; -LORA1TAB4 PO
[2022-10-25 14:26] VITALS: TEMP 96.6
[2022-10-25] MEDS ORDERED: NS 1,000 ML IV ONE (14:35)
[2022-10-25 14:48] LABS: ABG BASE EXCESS -2.3 (-2.0-2.0); ABG HCO3 21.8 MMOL/L (22.0-26.0); ABG O2 SATURATION 90.7 % (95.0-99.0); ABG PARTIAL PRESSURE CO2 35.7 mmHg (35.0-45.0); ABG PARTIAL PRESSURE O2 58.1 mmHg (75.0-100.0); ABG STANDARD HCO3 22.4 MMOL/L. (22.0-26.0); ABG TOTAL CO2 22.9 MMOL/L (22.0-29.0); ABG pH (ARTERIAL) 7.404 UNITS (7.350-7.450)
[2022-10-25 15:32] LABS: BASO % 0.3 % (0.0-1.0); EOS # 0.1 10^3/uL (0.0-0.5); EOS % 0.5 % (0.0-3.0); HEMATOCRIT 41.5 % (42.0-52.0); LYMPH # 1.1 10^3/uL (1.5-5.0); LYMPH % 10.1 % (24.0-44.0); MEAN CORPUSCULAR HEMOGLOBIN 28.6 pg (27.0-33.0); MEAN CORPUSCULAR HGB CONC 33.7 g/dl (32.0-36.5); MEAN CORPUSCULAR VOLUME 84.7 fl (80.0-96.0); MONO # 0.8 10^3/uL (0.0-0.8); MONO % 6.8 % (2.0-8.0); NEUTROPHILS # 9.1 10^3/uL (1.5-8.5); NEUTROPHILS % 81.8 % (36.0-66.0); PLATELET COUNT, AUTOMATED 261 10^3/uL (150-450); WHITE BLOOD COUNT 11.1 10^3/uL (4.0-10.0)
[2022-10-25 15:51] LABS: RSV AMPLIFICATION NEGATIVE (NEGATIVE)
[2022-10-25 16:02] LABS: ETHYL ALCOHOL (ETHANOL) < 0.003 % (0.000-0.010)
[2022-10-25 16:03] LABS: SALICYLATE LEVEL < 3.0 MG/DL (<30)
[2022-10-25 16:04] LABS: ACETAMINOPHEN LEVEL < 2.0 UG/ML (10.0-20.0); ALBUMIN 3.6 G/DL (3.2-5.2); ALKALINE PHOSPHATASE 74 U/L (46-116); ALT/SGPT 54 U/L (7.0-40); AST/SGOT 44 U/L (<34); BILIRUBIN,DIRECT 0.2 MG/DL (<0.4); BILIRUBIN,TOTAL 0.5 MG/DL (0.3-1.2); BLOOD UREA NITROGEN 16 MG/DL (9-23); CALCIUM LEVEL 9.3 MG/DL (8.5-10.1); CARBON DIOXIDE LEVEL 27 MMOL/L (20-31); CHLORIDE LEVEL 104 MMOL/L (98-107); CREATININE FOR GFR 0.84 MG/DL (0.70-1.30); GLOMERULAR FILTRATION RATE > 60.0 (>60); GLUCOSE, FASTING 90 MG/DL (60-100); POTASSIUM SERUM 4.1 MMOL/L (3.5-5.1); SODIUM LEVEL 139 MMOL/L (136-145); TOTAL PROTEIN 6.5 G/DL (5.7-8.2)
[2022-10-25 16:06] LABS: OSMOLALITY SERUM 287 MOSM/KG (275-295); THYROID STIMULATING HORMONE 2.871 uIU/ML (0.55-4.78)
[2022-10-25 16:08] LABS: CPK CREATINE PHOSPHOKINASE 150 U/L (46-171)
[2022-10-25 17:15] VITALS: BP 114/76; O2SAT 91
== END 2022-10-25 18:14 | disposition home or self-care (01) ==
LOC: M ED 14:18
DX: T40.2X1A Poisoning by other opioids, accidental (unintentional), initial encounter (principal); B19.20 Unspecified viral hepatitis C without hepatic coma; Z88.8 Allergy status to other drugs, medicaments and biological substances